=== PATIENT | male | born 1945 | race Hispanic/Latino ===

== ENCOUNTER 2019-05-07 17:33 | Emergency (ER) | payer MEDICARE ==
--- NOTE | 2019-05-07 17:46 | Emergency Department Report ---
Blank Doc - Documentation Documentation: 73-year-old male that presents with alcohol detox. Last drink was today. Sta haylee has depression and SI. This initial assessment/diagnostic orders/clinical plan/treatment(s) is/are subject to change based on patient's health status, clinical progression and re- assessment by fellow clinical providers in the ED. Further treatment and workup at subsequent clinical providers discretion. Patient/guardians urged not to elope from the ED as their condition may be serious if not clinically assessed and managed. Initial orders include: 1- Patient sent to MAIN ED for further evaluation and treatment 2- wire roller was notified to have patient be brought back IVETH. 3- RN was notified to keep patient as close range and observation until room available 4- Patient presents with substantial risk of imminent harm to self, appears to be so unable to care for his/her own physical health and safety as to create an imminently life-endangering crisis, and has committed/expressed life endangering crisis to self. Due to this and other complaints, patient is put on psych hold.
[2019-05-07 18:22] LABS: Basophils # (Auto) 0.1 K/mm3 (0.0-0.1); Eosinophils % (Auto) 0.1 % (0.0-4.3); Hematocrit 36.2 % (35.5-45.6); Hemoglobin 12.4 gm/dl (11.8-15.2); Lymphocytes # (Auto) 1.2 K/mm3 (1.2-5.4); Lymphocytes % (Auto) 17.3 % (13.4-35.0); Mean Corpuscular HGB Conc 34 % (32-34); Mean Corpuscular Volume 101 fl (84-94); Monocytes # (Auto) 0.6 K/mm3 (0.0-0.8); Monocytes % (Auto) 8.9 % (0.0-7.3); Platelet Count 304 K/mm3 (140-440); Red Blood Count 3.57 M/mm3 (3.65-5.03); Red Cell Distribution Width 13.5 % (13.2-15.2)
[2019-05-07 18:44] LABS: Alanine Aminotransferase 65 units/L (7-56); Albumin 4.4 g/dL (3.9-5); BUN/Creatinine Ratio 23; Blood Urea Nitrogen 18 mg/dL (9-20); Calcium 9.2 mg/dL (8.4-10.2); Hemolysis Index 7
[2019-05-07 18:52] LABS: Bilirubin,Urine NEG (Negative); Blood,Urine NEG (Negative); Color,Urine Straw (Yellow); Hyaline Casts,Urine 1 /LPF; Protein,Urine <15 mg/dL mg/dL (Negative); Urobilinogen,Urine < 2.0 mg/dL (<2.0)
[2019-05-07 19:01] LABS: Amphetamine Screen,Urine PRESUMPTIVE NEGATIVE; Benzodiazepines Screen,Urine PRESUMPTIVE NEGATIVE; Cannabinoid Screen,Urine PRESUMPTIVE NEGATIVE; Cocaine Screen,Urine PRESUMPTIVE NEGATIVE; Methadone Screen,Urine PRESUMPTIVE NEGATIVE; Opiate Screen,Urine PRESUMPTIVE NEGATIVE
[2019-05-07] MEDS ORDERED: traMADol 50 MG TAB PO ONE (19:34)
[2019-05-07] MEDS ORDERED: LORazepam 2 MG TAB PO PRN (19:34)
[2019-05-07] MEDS ORDERED: SODIUM CHLORIDE 0.9% 1000 ML 1,000 ML IV ONE (20:10)
[2019-05-07] MEDS ORDERED: THIAMINE 100 MG, FOLIC ACID 1 MG, MULTIPLE VITAMIN INJ, ADULT 10 ML in SODIUM CHLORIDE ... IV ONE (20:11)
[2019-05-07] MEDS: LORazepam 2 MG TAB PO PRN (20:12)
--- NOTE | 2019-05-07 23:16 | Emergency Department Report ---
<ELIE GARRISON S - Last Filed: 05/08/19 10:42> ED Psych HPI - General Chief Complaint: Alcohol Stated Complaint: DETOX Time Seen by Provider: 05/07/19 17:44 - Related Data Home Medications Medication Instructions Recorded Confirmed Last Taken Amlodipine Besylate [Norvasc] 10 mg PO QDAY 04/30/13 05/08/19 06/13/13 07:30 Clopidogrel [Plavix] 75 mg PO QDAY 04/30/13 05/08/19 06/09/13 Zolpidem Tartrate 10 mg PO QHS 04/30/13 05/08/19 06/12/13 labetaloL [Labetalol 200mg TAB] 300 mg PO BID 04/30/13 05/08/19 06/13/13 07:30 Previous Rx's Medication Instructions Recorded Last Taken Type oxyCODONE /ACETAMINOPHEN [Percocet 1 tab PO Q6HR PRN #25 tablet 05/01/13 06/12/13 Rx 5/325 mg] Simvastatin 20 mg PO QHS #30 tablet 07/07/13 Unknown Rx Allergies Allergy/AdvReac Type Severity Reaction Status Date / Time No Known Allergies Allergy Verified 05/01/13 00:43 ED Past Medical Hx - Medications Home Medications: Home Medications Medication Instructions Recorded Confirmed Last Taken Type Amlodipine Besylate [Norvasc] 10 mg PO QDAY 04/30/13 05/08/19 06/13/13 07:30 History Clopidogrel [Plavix] 75 mg PO QDAY 04/30/13 05/08/19 06/09/13 History Zolpidem Tartrate 10 mg PO QHS 04/30/13 05/08/19 06/12/13 History labetaloL [Labetalol 200mg TAB] 300 mg PO BID 04/30/13 05/08/19 06/13/13 07:30 History oxyCODONE /ACETAMINOPHEN [Percocet 1 tab PO Q6HR PRN #25 tablet 05/01/13 05/08/19 06/12/13 Rx 5/325 mg] Simvastatin 20 mg PO QHS #30 tablet 07/07/13 05/08/19 Unknown Rx ED Medical Decision Making - Lab Data Result diagrams: 05/07/19 18:05 05/07/19 18:05 ED Disposition Clinical Impression: Suicidal ideation, Alcohol abuse, Elevated LFTs Disposition: DC-01 TO HOME OR SELFCARE Is pt being admited?: No Condition: Stable Instructions: Depression (ED), Abuse of Alcohol (ED), Suicide Prevention for Adults (ED) Additional Instructions: Please follow up with your primary care physician as soon as you are done with inpatient psych. Please follow-up with your primary care physician regarding your elevated liver enzymes and for your general care. Return to the emergency department with any worsening of your symptoms, thoughts of harming herself or others, or with any acute distress. Please avoid further alcohol use/abuse. Referrals: PRIMARY CARE, [Primary Care Provider] - 2-3 Days Time of Disposition: 10:43 <BRI VAUGHN - Last Filed: 05/09/19 00:37> ED Psych HPI - General Source: patient, family Mode of arrival: Ambulatory - History of Present Illness Initial Comments: 73-year-old male with history of depression and alcohol abuse presents to ED with report of suicidal ideation. Patient states this has happened multiple times in the past and reports patient has had several admissions to [facility]. Patient is requesting alcohol detox. Patient states that he is suicidal, but currently has no plan. He also reports chronic pain in his left leg. Complaint: suicidal ideation, feels depressed -: unknown Associated Psychiatric Symptoms: suicidal ideation History of same: Yes Quality: constant Context: recent alcohol abuse Associated Symptoms: denies other symptoms Treatments Prior to Arrival: none If Self Harm: admits thoughts of ED Review of Systems ROS: Stated complaint: DETOX Other details as noted in HPI Comment: All other systems reviewed and negative Psychiatric: depression, suicidal thoughts. denies: auditory hallucinations, visual hallucinations, homicidal thoughts ED Past Medical Hx - Past Medical History Previous Medical History?: Yes Hx Hypertension: Yes (2009) Hx Psychiatric Treatment: Yes (ETOH abuse) Hx COPD: Yes Additional medical history: insomnia, ETOH abuse - Surgical History Past Surgical History?: Yes Additional Surgical History: Back Surgery - Social History Smoking Status: Current Every Day Smoker Substance Use Type: Alcohol, Prescribed ED Physical Exam - General Limitations: Other General appearance: alert, in no apparent distress, appears intoxicated - Head Head exam: Present: atraumatic, normocephalic - Eye Eye exam: Present: normal appearance - ENT ENT exam: Present: mucous membranes moist - Neck Neck exam: Present: normal inspection - Respiratory Respiratory exam: Present: normal lung sounds bilaterally. Absent: respiratory distress - Cardiovascular Cardiovascular Exam: Present: normal rhythm, tachycardia - GI/Abdominal GI/Abdominal exam: Present: soft. Absent: distended, tenderness - Extremities Exam Extremities exam: Present: other (chronic-appearing deformity to left lower leg and foot; no swelling/ erythema; leg is nontender to palpation; DP pulse palpable, cap refill nml) - Neurological Exam Neurological exam: Present: alert, oriented X3 - Psychiatric Psychiatric exam: Present: depressed, suicidal ideation - Skin Skin exam: Present: warm, dry, intact, normal color ED Course Vital Signs 05/07/19 05/07/19 05/07/19 17:35 19:57 19:58 Temperature 98 F 97.8 F Pulse Rate 113 H 104 H Respiratory 22 20 20 Rate Blood Pressure 172/75 Blood Pressure 178/86 [Left] O2 Sat by Pulse 97 97 97 Oximetry 05/07/19 05/07/19 05/08/19 20:11 21:11 00:00 Temperature Pulse Rate 90 Respiratory 20 20 20 Rate Blood Pressure Blood Pressure 152/77 [Left] O2 Sat by Pulse 99 Oximetry 05/08/19 07:44 Temperature Pulse Rate 82 Respiratory 20 Rate Blood Pressure Blood Pressure 106/72 [Left] O2 Sat by Pulse 99 Oximetry ED Medical Decision Making - Lab Data Result diagrams: 05/07/19 18:05 05/07/19 18:05 - Medical Decision Making 73 yo M presents w/ SI and requests alcohol detox. Labs show mild acidosis and mild liver enzyme elevation, likely due to his alcohol abuse. Pt given banana bag and placed on CIWA protocol. Will dispo per psych. - Differential Diagnosis depression, alcohol abuse Critical care attestation.: If time is entered above; I have spent that time in minutes in the direct care of this critically ill patient, excluding procedure time.
[2019-05-08] MEDS: LORazepam 2 MG TAB PO PRN (03:04)
[2019-05-08 07:45] VITALS: BP 106/72
== END 2019-05-08 10:58 | disposition home or self-care (01) ==
LOC: EEVIPCON 17:33 → ED 17:33
DX: F32.9 Major depressive disorder, single episode, unspecified (principal); I10 Essential (primary) hypertension; J44.9 Chronic obstructive pulmonary disease, unspecified; F17.200 Nicotine dependence, unspecified, uncomplicated; F10.10 Alcohol abuse, uncomplicated; Z98.890 Other specified postprocedural states
CPT/HCPCS: 36415; 80053; 80307; 81001; 85025; 96365; 96366; 99284; J3411; J7030; 80320; G0480

== ENCOUNTER 2019-05-08 09:57 | Inpatient (IN) | payer MEDICARE ==
[2019-05-08] MEDS ORDERED: traZODone 50 MG TAB PO PRN (10:31)
[2019-05-08] MEDS ORDERED: chlordiazePOXIDE 25 MG CAP PO PRN (10:32)
[2019-05-08] MEDS ORDERED: THIAMINE 100 MG TAB PO SCH (12:00)
[2019-05-08 15:46] LABS: Basophils # (Auto) 0.1 K/mm3 (0.0-0.1); Basophils % (Auto) 0.8 % (0.0-1.8); Eosinophils % (Auto) 0.5 % (0.0-4.3); Hematocrit 41.1 % (35.5-45.6); Hemoglobin 14.1 gm/dl (11.8-15.2); Lymphocytes # (Auto) 1.1 K/mm3 (1.2-5.4); Lymphocytes % (Auto) 16.3 % (13.4-35.0); Mean Corpuscular HGB Conc 34 % (32-34); Mean Corpuscular Volume 102 fl (84-94); Monocytes # (Auto) 0.5 K/mm3 (0.0-0.8); Monocytes % (Auto) 8.3 % (0.0-7.3); Platelet Count 317 K/mm3 (140-440); Red Blood Count 4.03 M/mm3 (3.65-5.03); Red Cell Distribution Width 13.8 % (13.2-15.2)
[2019-05-08 16:17] LABS: Alanine Aminotransferase 59 units/L (7-56); Albumin 4.7 g/dL (3.9-5); BUN/Creatinine Ratio 20; Blood Urea Nitrogen 14 mg/dL (9-20); Calcium 9.6 mg/dL (8.4-10.2); Hemolysis Index 5
[2019-05-08] MEDS: THIAMINE 100 MG TAB PO SCH (19:24)
[2019-05-08] MEDS: chlordiazePOXIDE 25 MG CAP PO PRN ×2 (21:31→23:11)
[2019-05-08] MEDS: PRAVASTATIN 40 MG TAB PO SCH (21:31)
[2019-05-08] MEDS: MELATONIN 5 MG TAB PO SCH (21:32)
[2019-05-08] MEDS ORDERED: NON-FORMULARY EACH (Simvastatin [Simvastatin] 20 MG) PO SCH (22:00)
[2019-05-08] MEDS ORDERED: traZODone 50 MG TAB PO SCH (22:00)
[2019-05-08] MEDS: DIVALPROEX DR 250 MG TAB PO SCH ×3 (23:10→23:57)
[2019-05-09] MEDS: oxyCODONE /ACETAMINOPHEN 5-325MG TAB PO PRN ×2 (03:43→21:13)
[2019-05-09] MEDS: DIVALPROEX DR 250 MG TAB PO SCH ×3 (09:50→21:13)
[2019-05-09] MEDS: amLODIPine 10 MG TAB PO SCH (09:51)
[2019-05-09] MEDS: THIAMINE 100 MG TAB PO SCH (09:56)
[2019-05-09] MEDS: CLOPIDOGREL 75 MG TAB PO SCH (09:56)
[2019-05-09] MEDS ORDERED: NON-FORMULARY EACH (Amlodipine Besylate [Norvasc] 10 MG) PO SCH (10:00)
--- NOTE | 2019-05-09 10:35 | Consultation ---
History of Present Illness - Reason for Consult Consult date: 05/09/19 medical Mx - History of Present Illness Mr. Martinez is a 73 years old white male with h/o HTN seizure appears older than his age presented her for depression. He also has h/o alcohol drinking daily basis. Hospitalist service consulted for medical Mx. patient is eating lunch, denies any chest pain or SBO. PAST PSYCHIATRIC HISTORY: major depression, PAST MEDICAL HISTORY: seizure, htn PAST SURGICAL HISTORY: None Family Psychiatric History HTN, mother with dementia SOCIAL HISTORY Marital Status: Living Arrangements: Mother Employment Status: Unemployed History of Abuse: + for alcohol Past History Past Medical History: hypertension, seizures Medications and Allergies Allergies Allergy/AdvReac Type Severity Reaction Status Date / Time No Known Allergies Allergy Verified 05/01/13 00:43 Home Medications Medication Instructions Recorded Confirmed Last Taken Type Amlodipine Besylate [Norvasc] 10 mg PO QDAY 04/30/13 05/08/19 06/13/13 07:30 History Clopidogrel [Plavix] 75 mg PO QDAY 04/30/13 05/08/19 06/09/13 History Zolpidem Tartrate 10 mg PO QHS 04/30/13 05/08/19 06/12/13 History labetaloL [Labetalol 200mg TAB] 300 mg PO BID 04/30/13 05/08/19 06/13/13 07:30 History oxyCODONE /ACETAMINOPHEN [Percocet 1 tab PO Q6HR PRN #25 tablet 05/01/13 05/08/19 06/12/13 Rx 5/325 mg] Simvastatin 20 mg PO QHS #30 tablet 07/07/13 05/08/19 Unknown Rx Active Meds: Active Medications Amlodipine Besylate (Amlodipine) 10 mg PO DAILY [facility] Last Admin: 05/09/19 09:51 Dose: 10 mg Documented by: Clopidogrel Bisulfate (Plavix) 75 mg PO QDAY [facility] Last Admin: 05/09/19 09:56 Dose: 75 mg Documented by: Divalproex Sodium (Depakote Dr) 250 mg PO TID [facility] Last Admin: 05/09/19 09:50 Dose: 250 mg Documented by: Hydroxyzine Pamoate (Vistaril) 50 mg PO Q6H PRN PRN Reason: Anxiety Labetalol HCl (Labetalol) 300 mg PO BID [facility] Last Admin: 05/09/19 09:51 Dose: 300 mg Documented by: Melatonin (Melatonin) 5 mg PO QHS [facility] Last Admin: 05/08/19 21:32 Dose: 5 mg Documented by: Oxycodone/Acetaminophen (Percocet 5/325) 1 tab PO Q6HR PRN PRN Reason: PAIN Last Admin: 05/09/19 03:43 Dose: 1 tab Documented by: Pravastatin Sodium (Pravachol) 40 mg PO QHS [facility] Last Admin: 05/08/19 21:31 Dose: 40 mg Documented by: Thiamine HCl (Vitamin B-1) 100 mg PO QDAY [facility] Last Admin: 05/09/19 09:56 Dose: 100 mg Documented by: Trazodone HCl (Desyrel) 50 mg PO QHS [facility] Last Admin: 05/08/19 21:59 Dose: 50 mg Documented by: Review of Systems Constitutional: weight loss, fatigue, weakness, no anorexia Ears, nose, mouth and throat: no ear pain, no decreased hearing, no nasal congestion, no bleeding gums, no voice changes, no headache Cardiovascular: no chest pain, no orthopnea, no palpitations Respiratory: no cough, no dyspnea on exertion, no wheezing Gastrointestinal: no abdominal pain, no nausea, no vomiting Genitourinary Male: no dysuria Rectal: no hemorrhoids Musculoskeletal: no neck stiffness, no muscle cramps Integumentary: no rash, no redness Neurological: no paralysis, no weakness, no parathesias Psychiatric: depression Endocrine: weight change, no cold intolerance, no heat intolerance Hematologic/Lymphatic: no easy bruising, no easy bleeding Allergic/Immunologic: no wheezing Exam - Constitutional Vitals: Temp Pulse Resp BP Pulse Ox 97.5 F L 83 16 156/87 98 05/08/19 19:54 05/09/19 09:51 05/09/19 03:43 05/09/19 09:51 05/08/19 19:54 General appearance: Present: no acute distress, other (appears older than his age) - EENT Eyes: Present: PERRL ENT: hearing intact, clear oral mucosa - Neck Neck: Present: supple, normal ROM - Respiratory Respiratory effort: normal Respiratory: bilateral: CTA - Cardiovascular Heart Sounds: Present: S1 & S2. Absent: rub, click - Extremities Extremities: pulses symmetrical, No edema Peripheral Pulses: within normal limits - Abdominal General gastrointestinal: Present: soft, non-tender, non-distended, normal bowel sounds - Integumentary Integumentary: Present: clear, warm, dry - Musculoskeletal Musculoskeletal: gait normal, strength equal bilaterally - Psychiatric Psychiatric: appropriate mood/affect, intact judgment & insight - Neurologic Neurologic: CNII-XII intact, moves all extremities Results - Labs CBC & Chem 7: 05/08/19 15:11 05/08/19 15:11 Labs: Abnormal lab results 05/08/19 05/08/19 Range/Units 15:11 15:11 MCV 102 H (84-94) fl MCH 35 H (28-32) pg Mcculloch % (Auto) 8.3 H (0.0-7.3) % Lymph # 1.1 L (1.2-5.4) K/mm3 Seg Neutrophils % 74.1 H (40.0-70.0) % Sodium 135 L (137-145) mmol/L Chloride 92.8 L (98-107) mmol/L Creatinine 0.7 L (0.8-1.5) mg/dL AST 102 H (5-40) units/L ALT 59 H (7-56) units/L Assessment and Plan MDD - Mx per primary - patient refuse SI or SA HTN, stable, cont home meds Seizure disorder, cont home meds Alcohol abuse, monitor for withdrawal, cont folate and thiamin - rehab/pre vocational counselor for cessation DVT Px, SCD when on bed, pt ambulatory
--- NOTE | 2019-05-09 11:05 | History and Physical Report ---
<RACHAEL BACK - Last Filed: 05/09/19 11:46> GP History & Physical - History of Present Illness Date of admission: 05/08/19 Date of Examination: 05/09/19 Reason for Admission: Danger to self, Severe anxiety/depression History of Present Illness: Mr. Martinez is a 73 years old white male. Patient is alert and oriented 3. The patient is dressed appropriately. The patient appears older than his age patient maintained eye contact patient stated that he is here in the hospital because he's been falling a lot and he gets depressed all the time because he cannot do anything about falling he states he was brought here because of suicidal thoughts he currently doesn't have any plans patient reports that he has not been sleeping and he has lost a lot of weight he denies hearing anything but he does report seeing spots he reports that he drinks daily, beer he is his choice of drink and his last drink was a day before coming to the hospital he reports that he has had seizures from drinking currently reports shakes depression and irritability. PAST PSYCHIATRIC HISTORY: Diagnoses: major depression, suicide ideation on Suicide attempts or Self-harm behavior: Denies Prior psychiatric hospitalizations: Denies Substance Abuse history: Denies Previous psychiatric medications tried: Denies Outpatient treatment: Denies PAST MEDICAL HISTORY: seizure, htn Family Psychiatric History None reported or documented SOCIAL HISTORY Marital Status: Living Arrangements: Mother Employment Status: Unemployed Access to guns/weapons: Denies Education: Ninth grade History of Abuse: Denies Legal History: Denies ROS: Constitutional: Negative for weight loss ENT: Negative for stridor Respiratory: Negative for cough or hemoptysis All other systems reviewed and are negative MENTAL STATUS General Appearance and Behavior: age appropriate, good eye contact, cooperative with questioning and polite Cooperation: Cooperative Psychomotor Behavior: within normal limits Mood: sad Affect and affective range: Congruent with stated mood Thought Process: Fluent/Logical and Goal-directed Thought Content: Within reality Speech: Normal volume and Regular rate and rhythm Intellectual Functioning Average Suicidal Ideation: Denies SI Homicidal Ideation: Denies HI Impulse Control: intact Insight and Judgment: normal insight and judgment Memory: Normal Attention: Normal Orientation: alert and oriented Treatment Plan Due to the psychiatric conditions and treatment listed in the Assessment and Plan - the patient requires continued hospitalization. Will continue inpatient treatment to allow for medication adjustment and monitoring. Will continue q15 min safety checks. Will encourage the use of environmental modifications and non-pharmacologic approaches for the management of behavioral and psychological symptoms. Medication adjustment made today: start paxil 10mg daily, increase trazadone to 100md qhs Will continue current psych medications Monitor for medication side effects. The patient will continue on medications for physical illnesses, and Hospitalist will closely monitor these Continue intensive physical and occupational therapies. Monitor patient's mood, sleep, appetite, and behavior closely. Encourage patient to participate in individual and group therapeutic sessions on the thomas. Will provide a safe and therapeutic environment for patient. This is an acknowledgement statement that ANTONIETTA MARTINEZ JR is a 73 year old M who requires inpatient psychiatric admission for treatment which could reasonably be expected to improve the patient's condition for Estimated period of time patient will need to remain in the hospital: [7 ] Plan for post-hospital care: [out-patient ] Legal Status: Voluntary Patient Problems: Current Active Problems Alcohol use disorder, severe, dependence (Acute) MDD (major depressive disorder), recurrent episode, severe (Acute) Reaction to Hospitalization: Accepting Medications and Allergies Allergies Allergy/AdvReac Type Severity Reaction Status Date / Time No Known Allergies Allergy Verified 05/01/13 00:43 Home Medications Medication Instructions Recorded Confirmed Last Taken Type Amlodipine Besylate [Norvasc] 10 mg PO QDAY 04/30/13 05/08/19 06/13/13 07:30 History Clopidogrel [Plavix] 75 mg PO QDAY 04/30/13 05/08/19 06/09/13 History Zolpidem Tartrate 10 mg PO QHS 04/30/13 05/08/19 06/12/13 History labetaloL [Labetalol 200mg TAB] 300 mg PO BID 04/30/13 05/08/19 06/13/13 07:30 History oxyCODONE /ACETAMINOPHEN [Percocet 1 tab PO Q6HR PRN #25 tablet 05/01/13 05/08/19 06/12/13 Rx 5/325 mg] Simvastatin 20 mg PO QHS #30 tablet 07/07/13 05/08/19 Unknown Rx Active Meds: Active Medications Amlodipine Besylate (Amlodipine) 10 mg PO DAILY [facility] Last Admin: 05/09/19 09:51 Dose: 10 mg Documented by: Clopidogrel Bisulfate (Plavix) 75 mg PO QDAY [facility] Last Admin: 05/09/19 09:56 Dose: 75 mg Documented by: Divalproex Sodium (Depakote Dr) 250 mg PO TID [facility] Last Admin: 05/09/19 09:50 Dose: 250 mg Documented by: Hydroxyzine Pamoate (Vistaril) 50 mg PO Q6H PRN PRN Reason: Anxiety Labetalol HCl (Labetalol) 300 mg PO BID [facility] Last Admin: 05/09/19 09:51 Dose: 300 mg Documented by: Melatonin (Melatonin) 5 mg PO QHS [facility] Last Admin: 05/08/19 21:32 Dose: 5 mg Documented by: Oxycodone/Acetaminophen (Percocet 5/325) 1 tab PO Q6HR PRN PRN Reason: PAIN Last Admin: 05/09/19 03:43 Dose: 1 tab Documented by: Pravastatin Sodium (Pravachol) 40 mg PO QHS [facility] Last Admin: 05/08/19 21:31 Dose: 40 mg Documented by: Thiamine HCl (Vitamin B-1) 100 mg PO QDAY [facility] Last Admin: 05/09/19 09:56 Dose: 100 mg Documented by: Trazodone HCl (Desyrel) 50 mg PO QHS [facility] Last Admin: 05/08/19 21:59 Dose: 50 mg Documented by: Results - Results Labs/Vitals: Laboratory Last Values WBC 6.5 K/mm3 (4.5-11.0) 05/08/19 15:11 RBC 4.03 M/mm3 (3.65-5.03) 05/08/19 15:11 Hgb 14.1 gm/dl (11.8-15.2) 05/08/19 15:11 Hct 41.1 % (35.5-45.6) 05/08/19 15:11 MCV 102 fl (84-94) H 05/08/19 15:11 MCH 35 pg (28-32) H 05/08/19 15:11 MCHC 34 % (32-34) 05/08/19 15:11 RDW 13.8 % (13.2-15.2) 05/08/19 15:11 Plt Count 317 K/mm3 (140-440) 05/08/19 15:11 Lymph % (Auto) 16.3 % (13.4-35.0) 05/08/19 15:11 [place] % (Auto) 8.3 % (0.0-7.3) H 05/08/19 15:11 Eos % (Auto) 0.5 % (0.0-4.3) 05/08/19 15:11 Baso % (Auto) 0.8 % (0.0-1.8) 05/08/19 15:11 Lymph # 1.1 K/mm3 (1.2-5.4) L 05/08/19 15:11 [place] # 0.5 K/mm3 (0.0-0.8) 05/08/19 15:11 Eos # 0.0 K/mm3 (0.0-0.4) 05/08/19 15:11 Baso # 0.1 K/mm3 (0.0-0.1) 05/08/19 15:11 Seg Neutrophils % 74.1 % (40.0-70.0) H 05/08/19 15:11 Seg Neutrophils # 4.8 K/mm3 (1.8-7.7) 05/08/19 15:11 Sodium 135 mmol/L (137-145) L 05/08/19 15:11 Potassium 4.5 mmol/L (3.6-5.0) 05/08/19 15:11 Chloride 92.8 mmol/L (98-107) L 05/08/19 15:11 Carbon Dioxide 25 mmol/L (22-30) D 05/08/19 15:11 Anion Gap 22 mmol/L 05/08/19 15:11 BUN 14 mg/dL (9-20) 05/08/19 15:11 Creatinine 0.7 mg/dL (0.8-1.5) L 05/08/19 15:11 Estimated GFR > 60 ml/min 05/08/19 15:11 BUN/Creatinine Ratio 20 % 05/08/19 15:11 Glucose 89 mg/dL (75-100) 05/08/19 15:11 Hemoglobin A1c 5.2 % (4-6) 05/08/19 15:11 Calcium 9.6 mg/dL (8.4-10.2) 05/08/19 15:11 Total Bilirubin 0.80 mg/dL (0.1-1.2) 05/08/19 15:11 AST 102 units/L (5-40) H 05/08/19 15:11 ALT 59 units/L (7-56) H 05/08/19 15:11 Alkaline Phosphatase 78 units/L (35-129) 05/08/19 15:11 Total Protein 8.2 g/dL (6.3-8.2) 05/08/19 15:11 Albumin 4.7 g/dL (3.9-5) 05/08/19 15:11 Albumin/Globulin Ratio 1.3 % 05/08/19 15:11 TSH 2.520 mlU/mL (0.270-4.200) 05/08/19 15:11 Last Vital Signs Temp 98.2 F 05/09/19 07:51 Pulse 83 05/09/19 09:51 Resp 18 05/09/19 07:51 BP 156/87 05/09/19 09:51 Pulse Ox 98 05/08/19 19:54 Physical Examination - Constitutional Vitals: Vital Signs Temp Pulse Resp BP Pulse Ox 98.2 F 83 18 156/87 98 05/09/19 07:51 05/09/19 09:51 05/09/19 07:51 05/09/19 09:51 05/08/19 19:54 Temperature -Last 24 Hours Temperature 98.2 F Temperature 97.5 F Mental Status Exam - Vital signs Last Vital Signs Temp 98.2 F 05/09/19 07:51 Pulse 83 05/09/19 09:51 Resp 18 05/09/19 07:51 BP 156/87 05/09/19 09:51 Pulse Ox 98 05/08/19 19:54 Physician Certification - Certification Statement Physician Certification Statement: This is an acknowledgement statement that ANTONIETTA MARTINEZ is a 73 year old M who requires inpatient psychiatric admission for treatment which could reasonably be expected to improve the patient's condition for Estimated period of time patient will need to remain in the hospital: [7 ] Plan for post-hospital care: [out-patient ] <NATHEN HEART - Last Filed: 05/11/19 22:25> Medications and Allergies Active Meds: Active Medications Amlodipine Besylate (Amlodipine) 10 mg PO DAILY [facility] Last Admin: 05/11/19 09:38 Dose: 10 mg Documented by: Chlordiazepoxide HCl (Librium) 50 mg PO Q1H PRN PRN Reason: CIWA-Ar 8-15 Last Admin: 05/09/19 11:51 Dose: 50 mg Documented by: Chlordiazepoxide HCl (Librium) 100 mg PO Q1H PRN PRN Reason: CIWA-Ar 16-25 Clopidogrel Bisulfate (Plavix) 75 mg PO QDAY [facility] Last Admin: 05/11/19 09:37 Dose: 75 mg Documented by: Divalproex Sodium (Depakote Dr) 250 mg PO TID [facility] Last Admin: 05/11/19 20:33 Dose: 250 mg Documented by: Hydroxyzine Pamoate (Vistaril) 50 mg PO Q6H PRN PRN Reason: Anxiety Labetalol HCl (Labetalol) 300 mg PO BID [facility] Last Admin: 05/11/19 21:22 Dose: 300 mg Documented by: Melatonin (Melatonin) 5 mg PO QHS [facility] Last Admin: 05/11/19 21:20 Dose: 5 mg Documented by: Nicotine (Habitrol) 21 mg TD QDAY [facility] Last Admin: 05/11/19 09:39 Dose: 21 mg Documented by: Oxycodone/Acetaminophen (Percocet 5/325) 1 tab PO Q6HR PRN PRN Reason: PAIN Last Admin: 05/11/19 11:30 Dose: 1 tab Documented by: Paroxetine HCl (Paxil) 10 mg PO QDAY [facility] Last Admin: 05/11/19 09:38 Dose: 10 mg Documented by: Pravastatin Sodium (Pravachol) 40 mg PO QHS [facility] Last Admin: 05/11/19 21:20 Dose: 40 mg Documented by: Thiamine HCl (Vitamin B-1) 100 mg PO QDAY [facility] Last Admin: 05/11/19 09:37 Dose: 100 mg Documented by: Trazodone HCl (Desyrel) 100 mg PO QHS [facility] Last Admin: 05/11/19 21:19 Dose: 100 mg Documented by: Results - Results Labs/Vitals: Laboratory Last Values WBC 6.5 K/mm3 (4.5-11.0) 05/08/19 15:11 RBC 4.03 M/mm3 (3.65-5.03) 05/08/19 15:11 Hgb 14.1 gm/dl (11.8-15.2) 05/08/19 15:11 Hct 41.1 % (35.5-45.6) 05/08/19 15:11 MCV 102 fl (84-94) H 05/08/19 15:11 MCH 35 pg (28-32) H 05/08/19 15:11 MCHC 34 % (32-34) 05/08/19 15:11 RDW 13.8 % (13.2-15.2) 05/08/19 15:11 Plt Count 317 K/mm3 (140-440) 05/08/19 15:11 Lymph % (Auto) 16.3 % (13.4-35.0) 05/08/19 15:11 Edgar % (Auto) 8.3 % (0.0-7.3) H 05/08/19 15:11 Eos % (Auto) 0.5 % (0.0-4.3) 05/08/19 15:11 Baso % (Auto) 0.8 % (0.0-1.8) 05/08/19 15:11 Lymph # 1.1 K/mm3 (1.2-5.4) L 05/08/19 15:11 Edgar # 0.5 K/mm3 (0.0-0.8) 05/08/19 15:11 Eos # 0.0 K/mm3 (0.0-0.4) 05/08/19 15:11 Baso # 0.1 K/mm3 (0.0-0.1) 05/08/19 15:11 Seg Neutrophils % 74.1 % (40.0-70.0) H 05/08/19 15:11 Seg Neutrophils # 4.8 K/mm3 (1.8-7.7) 05/08/19 15:11 Sodium 135 mmol/L (137-145) L 05/08/19 15:11 Potassium 4.5 mmol/L (3.6-5.0) 05/08/19 15:11 Chloride 92.8 mmol/L (98-107) L 05/08/19 15:11 Carbon Dioxide 25 mmol/L (22-30) D 05/08/19 15:11 Anion Gap 22 mmol/L 05/08/19 15:11 BUN 14 mg/dL (9-20) 05/08/19 15:11 Creatinine 0.7 mg/dL (0.8-1.5) L 05/08/19 15:11 Estimated GFR > 60 ml/min 05/08/19 15:11 BUN/Creatinine Ratio 20 % 05/08/19 15:11 Glucose 89 mg/dL (75-100) 05/08/19 15:11 POC Glucose 110 (70-105) H 05/11/19 16:36 Hemoglobin A1c 5.2 % (4-6) 05/08/19 15:11 Calcium 9.6 mg/dL (8.4-10.2) 05/08/19 15:11 Total Bilirubin 0.80 mg/dL (0.1-1.2) 05/08/19 15:11 AST 102 units/L (5-40) H 05/08/19 15:11 ALT 59 units/L (7-56) H 05/08/19 15:11 Alkaline Phosphatase 78 units/L (35-129) 05/08/19 15:11 Total Protein 8.2 g/dL (6.3-8.2) 05/08/19 15:11 Albumin 4.7 g/dL (3.9-5) 05/08/19 15:11 Albumin/Globulin Ratio 1.3 % 05/08/19 15:11 TSH 2.520 mlU/mL (0.270-4.200) 05/08/19 15:11 Last Vital Signs Temp 98.3 F 05/11/19 19:38 Pulse 80 05/11/19 21:22 Resp 20 05/11/19 19:38 BP 112/57 05/11/19 21:22 Pulse Ox 97 05/11/19 19:38 Physical Examination - Constitutional Vitals: Vital Signs Temp Pulse Resp BP Pulse Ox 98.3 F 80 20 112/57 97 05/11/19 19:38 05/11/19 21:22 05/11/19 19:38 05/11/19 21:22 05/11/19 19:38 Temperature -Last 24 Hours Temperature 98.3 F Temperature 97.9 F Mental Status Exam - Vital signs Last Vital Signs Temp 98.3 F 05/11/19 19:38 Pulse 80 05/11/19 21:22 Resp 20 05/11/19 19:38 BP 112/57 05/11/19 21:22 Pulse Ox 97 05/11/19 19:38 Assessment and Plan - Psychiatric problem (1) MDD (major depressive disorder), recurrent episode, severe Current Visit: Yes Status: Acute (2) Alcohol use disorder, severe, dependence Current Visit: Yes Status: Acute Physician Certification - Certification Statement Physician Certification Statement: This is an acknowledgement statement that ANTONIETTA VANGIE MARTINEZ JR is a 73 year old M who requires inpatient psychiatric admission for treatment which could reasonably be expected to improve the patient's condition for Estimated period of time patient will need to remain in the hospital: [ ] Plan for post-hospital care: [ ]
[2019-05-09] MEDS ORDERED: chlordiazePOXIDE 25 MG CAP PO PRN ×2 (11:20)
[2019-05-09] MEDS: traZODone 50 MG TAB PO SCH ×2 (12:23→21:09)
[2019-05-09] MEDS: MELATONIN 5 MG TAB PO SCH (21:12)
[2019-05-09] MEDS: PRAVASTATIN 40 MG TAB PO SCH (21:14)
[2019-05-10] MEDS: PARoxetine 10 MG TAB PO SCH (09:39)
[2019-05-10] MEDS: DIVALPROEX DR 250 MG TAB PO SCH ×3 (09:40→19:47)
[2019-05-10] MEDS: amLODIPine 10 MG TAB PO SCH (09:40)
[2019-05-10] MEDS: CLOPIDOGREL 75 MG TAB PO SCH (09:40)
[2019-05-10] MEDS: THIAMINE 100 MG TAB PO SCH (09:41)
[2019-05-10] MEDS: NICOTINE 21 MG/24 HR PATCH TD SCH (09:41)
--- NOTE | 2019-05-10 11:38 | Progress Note ---
Subjective Date of service: 05/10/19 Principal diagnosis: Major depressive disorder, recurrent svere. Alcohol use disorder, severe Subjective Comment: I interviewed the patient this morning. Medical records reviewed and patient's progress was discussed with unit staff. per patient chart Patient was interactive during the evening shift. At bedtime he became more confused. He was in the hallway looking for the bathroom. This instructional writer took him back to his room and told him his bathroom was in his room. He was unsteady on his feet. Staff assisted him and got him safely into bed. Last evening he was medication compliant. Will continue to monitor patient for safety. In my interview with the patient this morning,the patient is alert and oriented 2, able to make his needs known, dressed appropriately, maintaining eye contact. Patient reports his sleep is fair and that he is slowly trying to eat better. The patient denies seeing or hearing things they report his mood as all right. He denies suicidal or homicidal ideations patient is noted with intermittent confusion. The patient does report that he feels shaky and irritable. We'll continue to monitor patient for withdrawals and irritability Reason for continuing inpatient treatment Review of Symptoms: Constitutional: Negative for weight loss ENT: Negative for stridor Respiratory: Negative for cough or hemoptysis All other systems reviewed and are negative MENTAL STATUS General Appearance and Behavior: age appropriate, good eye contact, cooperative with questioning and polite Cooperation: Cooperative Psychomotor Behavior: within normal limits Mood: OK Affect and affective range: Congruent with stated mood Thought Process: Fluent/Logical and Goal-directed Thought Content: Within reality Speech: Normal volume and Regular rate and rhythm Intellectual Functioning Average Suicidal Ideation: Denies SI Homicidal Ideation: Denies HI Impulse Control: intact Insight and Judgment: normal insight and judgment Memory: Normal Attention: Normal Orientation: alert and oriented Treatment Plan Due to the psychiatric conditions and treatment listed in the Assessment and Plan - the patient requires continued hospitalization. Will continue inpatient treatment to allow for medication adjustment and monitoring. Will continue q15 min safety checks. Will encourage the use of environmental modifications and non-pharmacologic approaches for the management of behavioral and psychological symptoms. Medication adjustment made today: none Will continue current psych medications Monitor for medication side effects. The patient will continue on medications for physical illnesses, and Hospitalist will closely monitor these Continue intensive physical and occupational therapies. Monitor patient's mood, sleep, appetite, and behavior closely. Encourage patient to participate in individual and group therapeutic sessions on the thomas. Will provide a safe and therapeutic environment for patient. Estimated length of stay --- days Medications and Allergies Allergies Allergy/AdvReac Type Severity Reaction Status Date / Time No Known Allergies Allergy Verified 05/01/13 00:43 Home Medications Medication Instructions Recorded Confirmed Last Taken Type Amlodipine Besylate [Norvasc] 10 mg PO QDAY 04/30/13 05/08/19 06/13/13 07:30 History Clopidogrel [Plavix] 75 mg PO QDAY 04/30/13 05/08/19 06/09/13 History Zolpidem Tartrate 10 mg PO QHS 04/30/13 05/08/19 06/12/13 History labetaloL [Labetalol 200mg TAB] 300 mg PO BID 04/30/13 05/08/19 06/13/13 07:30 History oxyCODONE /ACETAMINOPHEN [Percocet 1 tab PO Q6HR PRN #25 tablet 05/01/13 05/08/19 06/12/13 Rx 5/325 mg] Simvastatin 20 mg PO QHS #30 tablet 07/07/13 05/08/19 Unknown Rx Active Meds: Active Medications Amlodipine Besylate (Amlodipine) 10 mg PO DAILY [facility] Last Admin: 05/10/19 09:40 Dose: 10 mg Documented by: Chlordiazepoxide HCl (Librium) 50 mg PO Q1H PRN PRN Reason: CIWA-Ar 8-15 Last Admin: 05/09/19 11:51 Dose: 50 mg Documented by: Chlordiazepoxide HCl (Librium) 100 mg PO Q1H PRN PRN Reason: CHRISWA-Kenn 16-25 Clopidogrel Bisulfate (Plavix) 75 mg PO QDAY [facility] Last Admin: 05/10/19 09:40 Dose: 75 mg Documented by: Divalproex Sodium (Depakote Dr) 250 mg PO TID [facility] Last Admin: 05/10/19 09:40 Dose: 250 mg Documented by: Hydroxyzine Pamoate (Vistaril) 50 mg PO Q6H PRN PRN Reason: Anxiety Labetalol HCl (Labetalol) 300 mg PO BID [facility] Last Admin: 05/10/19 09:38 Dose: 300 mg Documented by: Melatonin (Melatonin) 5 mg PO QHS [facility] Last Admin: 05/09/19 21:12 Dose: 5 mg Documented by: Nicotine (Habitrol) 21 mg TD QDAY [facility] Last Admin: 05/10/19 09:41 Dose: 21 mg Documented by: Oxycodone/Acetaminophen (Percocet 5/325) 1 tab PO Q6HR PRN PRN Reason: PAIN Last Admin: 05/09/19 21:13 Dose: 1 tab Documented by: Paroxetine HCl (Paxil) 10 mg PO QDAY [facility] Last Admin: 05/10/19 09:39 Dose: 10 mg Documented by: Pravastatin Sodium (Pravachol) 40 mg PO QHS [facility] Last Admin: 05/09/19 21:14 Dose: 40 mg Documented by: Thiamine HCl (Vitamin B-1) 100 mg PO QDAY [facility] Last Admin: 05/10/19 09:41 Dose: 100 mg Documented by: Trazodone HCl (Desyrel) 100 mg PO QHS [facility] Last Admin: 05/09/19 21:09 Dose: 100 mg Documented by: Results - Results Labs/Vitals: Laboratory Last Values WBC 6.5 K/mm3 (4.5-11.0) 05/08/19 15:11 RBC 4.03 M/mm3 (3.65-5.03) 05/08/19 15:11 Hgb 14.1 gm/dl (11.8-15.2) 05/08/19 15:11 Hct 41.1 % (35.5-45.6) 05/08/19 15:11 MCV 102 fl (84-94) H 05/08/19 15:11 MCH 35 pg (28-32) H 05/08/19 15:11 MCHC 34 % (32-34) 05/08/19 15:11 RDW 13.8 % (13.2-15.2) 05/08/19 15:11 Plt Count 317 K/mm3 (140-440) 05/08/19 15:11 Lymph % (Auto) 16.3 % (13.4-35.0) 05/08/19 15:11 [place] % (Auto) 8.3 % (0.0-7.3) H 05/08/19 15:11 Eos % (Auto) 0.5 % (0.0-4.3) 05/08/19 15:11 Baso % (Auto) 0.8 % (0.0-1.8) 05/08/19 15:11 Lymph # 1.1 K/mm3 (1.2-5.4) L 05/08/19 15:11 [place] # 0.5 K/mm3 (0.0-0.8) 05/08/19 15:11 Eos # 0.0 K/mm3 (0.0-0.4) 05/08/19 15:11 Baso # 0.1 K/mm3 (0.0-0.1) 05/08/19 15:11 Seg Neutrophils % 74.1 % (40.0-70.0) H 05/08/19 15:11 Seg Neutrophils # 4.8 K/mm3 (1.8-7.7) 05/08/19 15:11 Sodium 135 mmol/L (137-145) L 05/08/19 15:11 Potassium 4.5 mmol/L (3.6-5.0) 05/08/19 15:11 Chloride 92.8 mmol/L (98-107) L 05/08/19 15:11 Carbon Dioxide 25 mmol/L (22-30) D 05/08/19 15:11 Anion Gap 22 mmol/L 05/08/19 15:11 BUN 14 mg/dL (9-20) 05/08/19 15:11 Creatinine 0.7 mg/dL (0.8-1.5) L 05/08/19 15:11 Estimated GFR > 60 ml/min 05/08/19 15:11 BUN/Creatinine Ratio 20 % 05/08/19 15:11 Glucose 89 mg/dL (75-100) 05/08/19 15:11 Hemoglobin A1c 5.2 % (4-6) 05/08/19 15:11 Calcium 9.6 mg/dL (8.4-10.2) 05/08/19 15:11 Total Bilirubin 0.80 mg/dL (0.1-1.2) 05/08/19 15:11 AST 102 units/L (5-40) H 05/08/19 15:11 ALT 59 units/L (7-56) H 05/08/19 15:11 Alkaline Phosphatase 78 units/L (35-129) 05/08/19 15:11 Total Protein 8.2 g/dL (6.3-8.2) 05/08/19 15:11 Albumin 4.7 g/dL (3.9-5) 05/08/19 15:11 Albumin/Globulin Ratio 1.3 % 05/08/19 15:11 TSH 2.520 mlU/mL (0.270-4.200) 05/08/19 15:11 Last Vital Signs Temp 97.6 F 05/09/19 21:25 Pulse 86 05/10/19 09:40 Resp 18 05/09/19 21:25 BP 140/71 05/10/19 09:40 Pulse Ox 98 05/08/19 19:54
[2019-05-10] MEDS: oxyCODONE /ACETAMINOPHEN 5-325MG TAB PO PRN ×2 (13:48→21:15)
[2019-05-10] MEDS: PRAVASTATIN 40 MG TAB PO SCH (21:11)
[2019-05-10] MEDS: traZODone 50 MG TAB PO SCH (21:11)
[2019-05-10] MEDS: MELATONIN 5 MG TAB PO SCH (21:13)
[2019-05-11] MEDS: DIVALPROEX DR 250 MG TAB PO SCH ×3 (08:35→20:33)
[2019-05-11] MEDS: CLOPIDOGREL 75 MG TAB PO SCH (09:37)
[2019-05-11] MEDS: THIAMINE 100 MG TAB PO SCH (09:37)
[2019-05-11] MEDS: PARoxetine 10 MG TAB PO SCH (09:38)
[2019-05-11] MEDS: amLODIPine 10 MG TAB PO SCH (09:38)
[2019-05-11] MEDS: NICOTINE 21 MG/24 HR PATCH TD SCH (09:39)
--- NOTE | 2019-05-11 10:09 | Progress Note ---
Subjective Date of service: 05/11/19 Principal diagnosis: Major depressive disorder, recurrent svere. Alcohol use disorder, severe Subjective Comment: I interviewed the patient this morning. Medical records reviewed and patient's progress was discussed with unit staff. per patient chart, pt is medication compliant, able to make needs known, calm and cooperative, denies SI/HI, denies A/V/H, interacts with selected peers, good appetite, c/o of left shoulder pain, percocet 5/325mg po given with bedtime medication with effect, pt rested well during the night, slept approximately 8hrs plus, no distress noted, will continue to monitor for safety. In my interview with the patient this morning,the patient is alert and oriented 2, able to make his needs known, dressed appropriately, maintaining eye contact. Patient reports he slept well and his appetite is poor.The patient denies seeing or hearing things he report his mood as hurting. He denies suicidal or homicidal ideations patient is noted with intermittent confusion. The patient does report that he still feel irritable at times. We'll continue to monitor patient for withdrawals and irritability Reason for continuing inpatient treatment: withdrawal symptoms/ depression Review of Symptoms: Constitutional: Negative for weight loss ENT: Negative for stridor Respiratory: Negative for cough or hemoptysis All other systems reviewed and are negative MENTAL STATUS General Appearance and Behavior: age appropriate, good eye contact, cooperative with questioning and polite Cooperation: Cooperative Psychomotor Behavior: within normal limits Mood: hurting Affect and affective range: Congruent with stated mood Thought Process: Fluent/Logical and Goal-directed Thought Content: Within reality Speech: Normal volume and Regular rate and rhythm Intellectual Functioning Average Suicidal Ideation: Denies SI Homicidal Ideation: Denies HI Impulse Control: intact Insight and Judgment: normal insight and judgment Memory: Normal Attention: Normal Orientation: alert and oriented Diagnoses: Major depressive disorder, recurrent severe. Alcohol use disorder, severe, dependence Treatment Plan Due to the psychiatric conditions and treatment listed in the Assessment and Plan - the patient requires continued hospitalization. Will continue inpatient treatment to allow for medication adjustment and mo nitoring. Will continue q15 min safety checks. Will encourage the use of environmental modifications and non-pharmacologic approaches for the management of behavioral and psychological symptoms. Medication adjustment made today: none Will continue current psych medications Monitor for medication side effects. The patient will continue on medications for physical illnesses, and Hospitalist will closely monitor these Continue intensive physical and occupational therapies. Monitor patient's mood, sleep, appetite, and behavior closely. Encourage patient to participate in individual and group therapeutic sessions on the thomas. Will provide a safe and therapeutic environment for patient. Estimated length of stay 6 days Medications and Allergies Allergies Allergy/AdvReac Type Severity Reaction Status Date / Time No Known Allergies Allergy Verified 05/01/13 00:43 Home Medications Medication Instructions Recorded Confirmed Last Taken Type Amlodipine Besylate [Norvasc] 10 mg PO QDAY 04/30/13 05/08/19 06/13/13 07:30 History Clopidogrel [Plavix] 75 mg PO QDAY 04/30/13 05/08/19 06/09/13 History Zolpidem Tartrate 10 mg PO QHS 04/30/13 05/08/19 06/12/13 History labetaloL [Labetalol 200mg TAB] 300 mg PO BID 04/30/13 05/08/19 06/13/13 07:30 History oxyCODONE /ACETAMINOPHEN [Percocet 1 tab PO Q6HR PRN #25 tablet 05/01/13 05/08/19 06/12/13 Rx 5/325 mg] Simvastatin 20 mg PO QHS #30 tablet 07/07/13 05/08/19 Unknown Rx Active Meds: Active Medications Amlodipine Besylate (Amlodipine) 10 mg PO DAILY [facility] Last Admin: 05/11/19 09:38 Dose: 10 mg Documented by: Chlordiazepoxide HCl (Librium) 50 mg PO Q1H PRN PRN Reason: CIWA-Ar 8-15 Last Admin: 05/09/19 11:51 Dose: 50 mg Documented by: Chlordiazepoxide HCl (Librium) 100 mg PO Q1H PRN PRN Reason: CIWA-Ar 16-25 Clopidogrel Bisulfate (Plavix) 75 mg PO QDAY [facility] Last Admin: 05/11/19 09:37 Dose: 75 mg Documented by: Divalproex Sodium (Depakote Dr) 250 mg PO TID [facility] Last Admin: 05/11/19 08:35 Dose: 250 mg Documented by: Hydroxyzine Pamoate (Vistaril) 50 mg PO Q6H PRN PRN Reason: Anxiety Labetalol HCl (Labetalol) 300 mg PO BID [facility] Last Admin: 01/23/20 09:37 Dose: 300 mg Documented by: Melatonin (Melatonin) 5 mg PO QHS [facility] Last Admin: 05/10/19 21:13 Dose: 5 mg Documented by: Nicotine (Habitrol) 21 mg TD QDAY [facility] Last Admin: 05/11/19 09:39 Dose: 21 mg Documented by: Oxycodone/Acetaminophen (Percocet 5/325) 1 tab PO Q6HR PRN PRN Reason: PAIN Last Admin: 05/10/19 21:15 Dose: 1 tab Documented by: Paroxetine HCl (Paxil) 10 mg PO QDAY [facility] Last Admin: 05/11/19 09:38 Dose: 10 mg Documented by: Pravastatin Sodium (Pravachol) 40 mg PO QHS [facility] Last Admin: 05/10/19 21:11 Dose: 40 mg Documented by: Thiamine HCl (Vitamin B-1) 100 mg PO QDAY [facility] Last Admin: 05/11/19 09:37 Dose: 100 mg Documented by: Trazodone HCl (Desyrel) 100 mg PO QHS [facility] Last Admin: 05/10/19 21:11 Dose: 100 mg Documented by: Results - Results Labs/Vitals: Laboratory Last Values WBC 6.5 K/mm3 (4.5-11.0) 05/08/19 15:11 RBC 4.03 M/mm3 (3.65-5.03) 05/08/19 15:11 Hgb 14.1 gm/dl (11.8-15.2) 05/08/19 15:11 Hct 41.1 % (35.5-45.6) 05/08/19 15:11 MCV 102 fl (84-94) H 05/08/19 15:11 MCH 35 pg (28-32) H 05/08/19 15:11 MCHC 34 % (32-34) 05/08/19 15:11 RDW 13.8 % (13.2-15.2) 05/08/19 15:11 Plt Count 317 K/mm3 (140-440) 05/08/19 15:11 Lymph % (Auto) 16.3 % (13.4-35.0) 05/08/19 15:11 [place] % (Auto) 8.3 % (0.0-7.3) H 05/08/19 15:11 Eos % (Auto) 0.5 % (0.0-4.3) 05/08/19 15:11 Baso % (Auto) 0.8 % (0.0-1.8) 05/08/19 15:11 Lymph # 1.1 K/mm3 (1.2-5.4) L 05/08/19 15:11 [place] # 0.5 K/mm3 (0.0-0.8) 05/08/19 15:11 Eos # 0.0 K/mm3 (0.0-0.4) 05/08/19 15:11 Baso # 0.1 K/mm3 (0.0-0.1) 05/08/19 15:11 Seg Neutrophils % 74.1 % (40.0-70.0) H 05/08/19 15:11 Seg Neutrophils # 4.8 K/mm3 (1.8-7.7) 05/08/19 15:11 Sodium 135 mmol/L (137-145) L 05/08/19 15:11 Potassium 4.5 mmol/L (3.6-5.0) 05/08/19 15:11 Chloride 92.8 mmol/L (98-107) L 05/08/19 15:11 Carbon Dioxide 25 mmol/L (22-30) D 05/08/19 15:11 Anion Gap 22 mmol/L 05/08/19 15:11 BUN 14 mg/dL (9-20) 05/08/19 15:11 Creatinine 0.7 mg/dL (0.8-1.5) L 05/08/19 15:11 Estimated GFR > 60 ml/min 05/08/19 15:11 BUN/Creatinine Ratio 20 % 05/08/19 15:11 Glucose 89 mg/dL (75-100) 05/08/19 15:11 POC Glucose 196 (70-105) H 05/10/19 20:20 Hemoglobin A1c 5.2 % (4-6) 05/08/19 15:11 Calcium 9.6 mg/dL (8.4-10.2) 05/08/19 15:11 Total Bilirubin 0.80 mg/dL (0.1-1.2) 05/08/19 15:11 AST 102 units/L (5-40) H 05/08/19 15:11 ALT 59 units/L (7-56) H 05/08/19 15:11 Alkaline Phosphatase 78 units/L (35-129) 05/08/19 15:11 Total Protein 8.2 g/dL (6.3-8.2) 05/08/19 15:11 Albumin 4.7 g/dL (3.9-5) 05/08/19 15:11 Albumin/Globulin Ratio 1.3 % 05/08/19 15:11 TSH 2.520 mlU/mL (0.270-4.200) 05/08/19 15:11 Last Vital Signs Temp 97.9 F 05/11/19 09:21 Pulse 78 05/11/19 09:38 Resp 16 05/11/19 09:21 BP 138/71 05/11/19 09:38 Pulse Ox 98 05/10/19 22:00
[2019-05-11] MEDS: oxyCODONE /ACETAMINOPHEN 5-325MG TAB PO PRN (11:30)
[2019-05-11] MEDS: traZODone 50 MG TAB PO SCH (21:19)
[2019-05-11] MEDS: MELATONIN 5 MG TAB PO SCH (21:20)
[2019-05-11] MEDS: PRAVASTATIN 40 MG TAB PO SCH (21:20)
[2019-05-12] MEDS: amLODIPine 10 MG TAB PO SCH (10:12)
[2019-05-12] MEDS: DIVALPROEX DR 250 MG TAB PO SCH ×3 (10:12→21:21)
[2019-05-12] MEDS: CLOPIDOGREL 75 MG TAB PO SCH (10:13)
[2019-05-12] MEDS: PARoxetine 10 MG TAB PO SCH (10:13)
[2019-05-12] MEDS: NICOTINE 21 MG/24 HR PATCH TD SCH (10:13)
[2019-05-12] MEDS: THIAMINE 100 MG TAB PO SCH (10:13)
--- NOTE | 2019-05-12 10:36 | Progress Note ---
Subjective Date of service: 05/12/19 Principal diagnosis: Major depressive disorder, recurrent svere. Alcohol use disorder, severe Subjective Comment: I reviewed the patient's medical record and discussed the patient's progress with the nursing staff. The nursing note states patient is withdrawn and appears depressed. flat affect, this AM, later pt seen interact with peers, patient is CACHIL DEHE and his responses are short while interacting. patient is medication compliant, c/o of generalized pain prn percocet 5/325mg given, pt verbalized relief. Patient transfers via w/c due to weak gait. During my interview with the patient this morning, he was lying in bed with his head covered with linen. He is confused. He makes poor eye contact. His affect is flat. He's very hard of hearing. He is irritable. He states, "I don't feel good" then puts his head back beneath the covers. He says he "didn't sleep well last night." He denies SI/HI. When asked about his mood, he states "I don't have one." He denies hallucinations of any kind. Reason for continuing inpatient treatment: The patient is withdrawn, irritable and unable to care for himself. Review of Symptoms: Constitutional: Negative for weight loss ENT: Negative for stridor, CACHIL DEHE Respiratory: Negative for cough or hemoptysis All other systems reviewed and are negative MENTAL STATUS General Appearance and Behavior: In bed. Dressed appropriate. Poor eye contact Mood: "I don't have one." Speech: Normal volume and Regular rate and rhythm Affect and affective range: Flat Thought Process: Confused Thought Content: Within reality Suicidal Ideation: Denies Homicidal Ideation: Denies Insight and Judgment: Limited Cognition/Memory: Confused, fair Treatment Plan Due to the psychiatric conditions and treatment listed in the Assessment and Plan - the patient requires continued hospitalization. Will continue inpatient treatment to allow for medication adjustment and monitoring. Will continue q15 min safety checks. Will encourage the use of environmental modifications and non-pharmacologic approaches for the management of behavioral and psychological symptoms. Medication adjustment made today: Risperidone 0.25mg po daily to improve mood Will continue current psych medications Monitor for medication side effects. The patient will continue on medications for physical illnesses, and Hospitalist will closely monitor these Continue intensive physical and occupational therapies. Monitor patient's mood, sleep, appetite, and behavior closely. Encourage patient to participate in individual and group therapeutic sessions on the thomas. Will provide a safe and therapeutic environment for patient. Estimated length of stay 3 days Medications and Allergies Allergies Allergy/AdvReac Type Severity Reaction Status Date / Time No Known Allergies Allergy Verified 05/01/13 00:43 Home Medications Medication Instructions Recorded Confirmed Last Taken Type Amlodipine Besylate [Norvasc] 10 mg PO QDAY 04/30/13 05/08/19 06/13/13 07:30 History Clopidogrel [Plavix] 75 mg PO QDAY 04/30/13 05/08/19 06/09/13 History Zolpidem Tartrate 10 mg PO QHS 04/30/13 05/08/19 06/12/13 History labetaloL [Labetalol 200mg TAB] 300 mg PO BID 04/30/13 05/08/19 06/13/13 07:30 History oxyCODONE /ACETAMINOPHEN [Percocet 1 tab PO Q6HR PRN #25 tablet 05/01/13 05/08/19 06/12/13 Rx 5/325 mg] Simvastatin 20 mg PO QHS #30 tablet 07/07/13 05/08/19 Unknown Rx Active Meds: Active Medications Amlodipine Besylate (Amlodipine) 10 mg PO DAILY [facility] Last Admin: 05/12/19 10:12 Dose: 10 mg Documented by: Chlordiazepoxide HCl (Librium) 50 mg PO Q1H PRN PRN Reason: CIWA-Kenn 8-15 Last Admin: 05/09/19 11:51 Dose: 50 mg Documented by: Chlordiazepoxide HCl (Librium) 100 mg PO Q1H PRN PRN Reason: HUGO-Kenn 16-25 Clopidogrel Bisulfate (Plavix) 75 mg PO QDAY [facility] Last Admin: 05/12/19 10:13 Dose: 75 mg Documented by: Divalproex Sodium (Depakote Dr) 250 mg PO TID [facility] Last Admin: 05/12/19 10:12 Dose: 250 mg Documented by: Hydroxyzine Pamoate (Vistaril) 50 mg PO Q6H PRN PRN Reason: Anxiety Labetalol HCl (Labetalol) 300 mg PO BID [facility] Last Admin: 05/12/19 10:12 Dose: 300 mg Documented by: Melatonin (Melatonin) 5 mg PO QHS [facility] Last Admin: 05/11/19 21:20 Dose: 5 mg Documented by: Nicotine (Habitrol) 21 mg TD QDAY [facility] Last Admin: 05/12/19 10:13 Dose: 21 mg Documented by: Oxycodone/Acetaminophen (Percocet 5/325) 1 tab PO Q6HR PRN PRN Reason: PAIN Last Admin: 05/11/19 11:30 Dose: 1 tab Documented by: Paroxetine HCl (Paxil) 10 mg PO QDAY [facility] Last Admin: 05/12/19 10:13 Dose: 10 mg Documented by: Pravastatin Sodium (Pravachol) 40 mg PO QHS [facility] Last Admin: 05/11/19 21:20 Dose: 40 mg Documented by: Thiamine HCl (Vitamin B-1) 100 mg PO QDAY [facility] Last Admin: 05/12/19 10:13 Dose: 100 mg Documented by: Trazodone HCl (Desyrel) 100 mg PO QHS [facility] Last Admin: 05/11/19 21:19 Dose: 100 mg Documented by: Results - Results Labs/Vitals: Laboratory Last Values WBC 6.5 K/mm3 (4.5-11.0) 05/08/19 15:11 RBC 4.03 M/mm3 (3.65-5.03) 05/08/19 15:11 Hgb 14.1 gm/dl (11.8-15.2) 05/08/19 15:11 Hct 41.1 % (35.5-45.6) 05/08/19 15:11 MCV 102 fl (84-94) H 05/08/19 15:11 MCH 35 pg (28-32) H 05/08/19 15:11 MCHC 34 % (32-34) 05/08/19 15:11 RDW 13.8 % (13.2-15.2) 05/08/19 15:11 Plt Count 317 K/mm3 (140-440) 05/08/19 15:11 Lymph % (Auto) 16.3 % (13.4-35.0) 05/08/19 15:11 [place] % (Auto) 8.3 % (0.0-7.3) H 05/08/19 15:11 Eos % (Auto) 0.5 % (0.0-4.3) 05/08/19 15:11 Baso % (Auto) 0.8 % (0.0-1.8) 05/08/19 15:11 Lymph # 1.1 K/mm3 (1.2-5.4) L 05/08/19 15:11 [place] # 0.5 K/mm3 (0.0-0.8) 05/08/19 15:11 Eos # 0.0 K/mm3 (0.0-0.4) 05/08/19 15:11 Baso # 0.1 K/mm3 (0.0-0.1) 05/08/19 15:11 Seg Neutrophils % 74.1 % (40.0-70.0) H 05/08/19 15:11 Seg Neutrophils # 4.8 K/mm3 (1.8-7.7) 05/08/19 15:11 Sodium 135 mmol/L (137-145) L 05/08/19 15:11 Potassium 4.5 mmol/L (3.6-5.0) 05/08/19 15:11 Chloride 92.8 mmol/L (98-107) L 05/08/19 15:11 Carbon Dioxide 25 mmol/L (22-30) D 05/08/19 15:11 Anion Gap 22 mmol/L 05/08/19 15:11 BUN 14 mg/dL (9-20) 05/08/19 15:11 Creatinine 0.7 mg/dL (0.8-1.5) L 05/08/19 15:11 Estimated GFR > 60 ml/min 05/08/19 15:11 BUN/Creatinine Ratio 20 % 05/08/19 15:11 Glucose 89 mg/dL (75-100) 05/08/19 15:11 POC Glucose 110 (70-105) H 05/11/19 16:36 Hemoglobin A1c 5.2 % (4-6) 05/08/19 15:11 Calcium 9.6 mg/dL (8.4-10.2) 05/08/19 15:11 Total Bilirubin 0.80 mg/dL (0.1-1.2) 05/08/19 15:11 AST 102 units/L (5-40) H 05/08/19 15:11 ALT 59 units/L (7-56) H 05/08/19 15:11 Alkaline Phosphatase 78 units/L (35-129) 05/08/19 15:11 Total Protein 8.2 g/dL (6.3-8.2) 05/08/19 15:11 Albumin 4.7 g/dL (3.9-5) 05/08/19 15:11 Albumin/Globulin Ratio 1.3 % 05/08/19 15:11 TSH 2.520 mlU/mL (0.270-4.200) 05/08/19 15:11 Last Vital Signs Temp 98.3 F 05/11/19 19:38 Pulse 76 05/12/19 10:12 Resp 18 05/12/19 10:06 BP 127/66 05/12/19 10:12 Pulse Ox 97 05/12/19 10:09
[2019-05-12] MEDS: risperiDONE 0.25 MG TAB PO SCH (12:27)
[2019-05-12] MEDS: oxyCODONE /ACETAMINOPHEN 5-325MG TAB PO PRN ×2 (12:28→21:22)
[2019-05-12] MEDS: traZODone 50 MG TAB PO SCH (21:19)
[2019-05-12] MEDS: MELATONIN 5 MG TAB PO SCH (21:21)
[2019-05-12] MEDS: PRAVASTATIN 40 MG TAB PO SCH (21:22)
--- NOTE | 2019-05-13 08:15 | Progress Note ---
Subjective Date of service: 05/13/19 Principal diagnosis: Major depressive disorder, recurrent svere. Alcohol use disorder, severe Subjective Comment: I reviewed the patient's medical record and discussed the patient's progress with the nursing staff. During my interview with the patient this morning, the patient is in his wheelchair at the door of his room. He is dressed in appropriate clothing. He is disheveled. He is a/o x 2. He makes good eye contact. He is hard of hearing. He communicates much more today than yesterday. He says he's here for "shoulder and arm pain." The patient states "I feel rough. I'm worn out." He says he slept well, but felt like he "needed more sleep." The patient then asks, "why are we getting up." I informed him that it was breakfast. He replied, "breakfast? I thought it was supper." He says his mood is "not good. I feel rough." He denies SI/HI. When asked about any hallucinations, Mr. Martinez replied, "I just hear your voice and it's sexy." Reason for continuing inpatient treatment: The patient unable to care for himself. Review of Symptoms: Constitutional: Negative for weight loss ENT: Negative for stridor, [place] Respiratory: Negative for cough or hemoptysis All other systems reviewed and are negative MENTAL STATUS General Appearance: Dressed appropriately. Disheveled. Behavior: Cooperative, inappropriate Mood: "not good" Speech: Normal rate and volume Affect and affective range: congruent Thought Process: goal directed Suicidal Ideation: Denies Homicidal Ideation: Denies Delusions: None elicited Insight and Judgment: Limited Cognition/Memory: Limited Assessment Major Depressive Disorder, recurring Alcohol Use Disorder Treatment Plan Due to the psychiatric conditions and treatment listed in the Assessment and Plan - the patient requires continued hospitalization. Will continue inpatient treatment to allow for medication adjustment and monitoring. Will continue q15 min safety checks. Will encourage the use of environmental modifications and non-pharmacologic approaches for the management of behavioral and psychological symptoms. Medication adjustment made today: No changes made today. Will continue current psych medications Monitor for medication side effects. The patient will continue on medications for physical illnesses, and Hospitalist will closely monitor these Continue intensive physical and occupational therapies. Monitor patient's mood, sleep, appetite, and behavior closely. Encourage patient to participate in individual and group therapeutic sessions on the thomas. Will provide a safe and therapeutic environment for patient. Estimated length of stay 3 days Medications and Allergies Allergies Allergy/AdvReac Type Severity Reaction Status Date / Time No Known Allergies Allergy Verified 05/01/13 00:43 Home Medications Medication Instructions Recorded Confirmed Last Taken Type Amlodipine Besylate [Norvasc] 10 mg PO QDAY 04/30/13 05/08/19 06/13/13 07:30 History Clopidogrel [Plavix] 75 mg PO QDAY 04/30/13 05/08/19 06/09/13 History Zolpidem Tartrate 10 mg PO QHS 04/30/13 05/08/19 06/12/13 History labetaloL [Labetalol 200mg TAB] 300 mg PO BID 04/30/13 05/08/19 06/13/13 07:30 History oxyCODONE /ACETAMINOPHEN [Percocet 1 tab PO Q6HR PRN #25 tablet 05/01/13 05/08/19 06/12/13 Rx 5/325 mg] Simvastatin 20 mg PO QHS #30 tablet 07/07/13 05/08/19 Unknown Rx Active Meds: Active Medications Amlodipine Besylate (Amlodipine) 10 mg PO DAILY [facility] Last Admin: 05/12/19 10:12 Dose: 10 mg Documented by: Chlordiazepoxide HCl (Librium) 50 mg PO Q1H PRN PRN Reason: CIWA-Kenn 8-15 Last Admin: 05/09/19 11:51 Dose: 50 mg Documented by: Chlordiazepoxide HCl (Librium) 100 mg PO Q1H PRN PRN Reason: HUGO-Kenn 16-25 Clopidogrel Bisulfate (Plavix) 75 mg PO QDAY [facility] Last Admin: 05/12/19 10:13 Dose: 75 mg Documented by: Divalproex Sodium (Depakote Dr) 250 mg PO TID [facility] Last Admin: 05/12/19 21:21 Dose: 250 mg Documented by: Hydroxyzine Pamoate (Vistaril) 50 mg PO Q6H PRN PRN Reason: Anxiety Labetalol HCl (Labetalol) 300 mg PO BID [facility] Last Admin: 05/12/19 21:17 Dose: 300 mg Documented by: Melatonin (Melatonin) 5 mg PO QHS [facility] Last Admin: 05/12/19 21:21 Dose: 5 mg Documented by: Nicotine (Habitrol) 21 mg TD QDAY [facility] Last Admin: 05/12/19 10:13 Dose: 21 mg Documented by: Oxycodone/Acetaminophen (Percocet 5/325) 1 tab PO Q6HR PRN PRN Reason: PAIN Last Admin: 05/12/19 21:22 Dose: 1 tab Documented by: Paroxetine HCl (Paxil) 10 mg PO QDAY [facility] Last Admin: 05/12/19 10:13 Dose: 10 mg Documented by: Pravastatin Sodium (Pravachol) 40 mg PO QHS [facility] Last Admin: 05/12/19 21:22 Dose: 40 mg Documented by: Risperidone (Risperdal) 0.25 mg PO DAILY [facility] Last Admin: 05/12/19 12:27 Dose: 0.25 mg Documented by: Thiamine HCl (Vitamin B-1) 100 mg PO QDAY [facility] Last Admin: 05/12/19 10:13 Dose: 100 mg Documented by: Trazodone HCl (Desyrel) 100 mg PO QHS [facility] Last Admin: 05/12/19 21:19 Dose: 100 mg Documented by: Results - Results Labs/Vitals: Laboratory Last Values WBC 6.5 K/mm3 (4.5-11.0) 05/08/19 15:11 RBC 4.03 M/mm3 (3.65-5.03) 05/08/19 15:11 Hgb 14.1 gm/dl (11.8-15.2) 05/08/19 15:11 Hct 41.1 % (35.5-45.6) 05/08/19 15:11 MCV 102 fl (84-94) H 05/08/19 15:11 MCH 35 pg (28-32) H 05/08/19 15:11 MCHC 34 % (32-34) 05/08/19 15:11 RDW 13.8 % (13.2-15.2) 05/08/19 15:11 Plt Count 317 K/mm3 (140-440) 05/08/19 15:11 Lymph % (Auto) 16.3 % (13.4-35.0) 05/08/19 15:11 [place] % (Auto) 8.3 % (0.0-7.3) H 05/08/19 15:11 Eos % (Auto) 0.5 % (0.0-4.3) 05/08/19 15:11 Baso % (Auto) 0.8 % (0.0-1.8) 05/08/19 15:11 Lymph # 1.1 K/mm3 (1.2-5.4) L 05/08/19 15:11 [place] # 0.5 K/mm3 (0.0-0.8) 05/08/19 15:11 Eos # 0.0 K/mm3 (0.0-0.4) 05/08/19 15:11 Baso # 0.1 K/mm3 (0.0-0.1) 05/08/19 15:11 Seg Neutrophils % 74.1 % (40.0-70.0) H 05/08/19 15:11 Seg Neutrophils # 4.8 K/mm3 (1.8-7.7) 05/08/19 15:11 Sodium 135 mmol/L (137-145) L 05/08/19 15:11 Potassium 4.5 mmol/L (3.6-5.0) 05/08/19 15:11 Chloride 92.8 mmol/L (98-107) L 05/08/19 15:11 Carbon Dioxide 25 mmol/L (22-30) D 05/08/19 15:11 Anion Gap 22 mmol/L 05/08/19 15:11 BUN 14 mg/dL (9-20) 05/08/19 15:11 Creatinine 0.7 mg/dL (0.8-1.5) L 05/08/19 15:11 Estimated GFR > 60 ml/min 05/08/19 15:11 BUN/Creatinine Ratio 20 % 05/08/19 15:11 Glucose 89 mg/dL (75-100) 05/08/19 15:11 POC Glucose 110 (70-105) H 05/11/19 16:36 Hemoglobin A1c 5.2 % (4-6) 05/08/19 15:11 Calcium 9.6 mg/dL (8.4-10.2) 05/08/19 15:11 Total Bilirubin 0.80 mg/dL (0.1-1.2) 05/08/19 15:11 AST 102 units/L (5-40) H 05/08/19 15:11 ALT 59 units/L (7-56) H 05/08/19 15:11 Alkaline Phosphatase 78 units/L (35-129) 05/08/19 15:11 Total Protein 8.2 g/dL (6.3-8.2) 05/08/19 15:11 Albumin 4.7 g/dL (3.9-5) 05/08/19 15:11 Albumin/Globulin Ratio 1.3 % 05/08/19 15:11 TSH 2.520 mlU/mL (0.270-4.200) 05/08/19 15:11 Last Vital Signs Temp 98.3 F 05/11/19 19:38 Pulse 79 05/12/19 21:17 Resp 18 05/12/19 10:06 BP 141/63 05/12/19 21:17 Pulse Ox 97 05/12/19 10:09
[2019-05-13] MEDS: oxyCODONE /ACETAMINOPHEN 5-325MG TAB PO PRN (08:28)
[2019-05-13] MEDS: DIVALPROEX DR 250 MG TAB PO SCH ×3 (08:29→21:45)
[2019-05-13] MEDS: amLODIPine 10 MG TAB PO SCH (09:21)
[2019-05-13] MEDS: THIAMINE 100 MG TAB PO SCH (09:21)
[2019-05-13] MEDS: CLOPIDOGREL 75 MG TAB PO SCH (09:21)
[2019-05-13] MEDS: risperiDONE 0.25 MG TAB PO SCH (09:21)
[2019-05-13] MEDS: PARoxetine 10 MG TAB PO SCH (09:22)
[2019-05-13] MEDS: NICOTINE 21 MG/24 HR PATCH TD SCH (09:23)
[2019-05-13] MEDS: MELATONIN 5 MG TAB PO SCH (21:44)
[2019-05-13] MEDS: traZODone 50 MG TAB PO SCH (21:45)
[2019-05-13] MEDS: PRAVASTATIN 40 MG TAB PO SCH (21:47)
--- NOTE | 2019-05-14 07:39 | Progress Note ---
Subjective Date of service: 05/14/19 Principal diagnosis: Major depressive disorder, recurrent svere. Alcohol use disorder, severe Subjective Comment: I reviewed the patient's medical record and discussed the patient's progress with the nursing staff. The nurse note states the patient has been quiet, isolative, and withdrawn. flat affect. [place] [employer] [employer]. currently medication compliant, tolerating whole. patient c/o left shoulder and knee pain. prn administered (see separate note). patient denies si/hi/avh. patient transfers via W/C. During my interview with the patient this morning, the patient is in bed. Asleep. He has the linen pulled over his head. He arouses by tactile stimuli. He makes poor eye contact. His affect is restricted. He is [place] [employer] [employer]. He is a/o x 2. When asked how was he feeling, the patient replied, "I'm making it." The patient asked "was it time to get up." He states he "didn't sleep good." When asked about SI/HI, the patient replied "I don't know any more." He denies hallucinations of any kind. Reason for continuing inpatient treatment: The patient unable to care for himself. Review of Symptoms: Constitutional: Negative for weight loss ENT: Negative for stridor, [employer] Respiratory: Negative for cough or hemoptysis All other systems reviewed and are negative MENTAL STATUS General Appearance: Dressed appropriately. Disheveled. Behavior: Cooperative, calm Mood: "I'm making it" Speech: Normal rate and volume Affect and affective range: Restricted Thought Process: goal directed Suicidal Ideation: the patient unsure Homicidal Ideation: Denies Delusions: None elicited Insight and Judgment: Limited Cognition/Memory: Limited Assessment Major Depressive Disorder, recurring Alcohol Use Disorder Treatment Plan Due to the psychiatric conditions and treatment listed in the Assessment and Plan - the patient requires continued hospitalization. Will continue inpatient treatment to allow for medication adjustment and monitoring. Will continue q15 min safety checks. Will encourage the use of environmental modifications and non-pharmacologic approaches for the management of behavioral and psychological symptoms. Medication adjustment made today: Increased Risperidone 0.5mg po daily to improve mood Will continue current psych medications Monitor for medication side effects. The patient will continue on medications for physical illnesses, and Hospitalist will closely monitor these Continue intensive physical and occupational therapies. Monitor patient's mood, sleep, appetite, and behavior closely. Encourage patient to participate in individual and group therapeutic sessions on the thomas. Will provide a safe and therapeutic environment for patient. Estimated length of stay 2 days Medications and Allergies Allergies Allergy/AdvReac Type Severity Reaction Status Date / Time No Known Allergies Allergy Verified 05/01/13 00:43 Home Medications Medication Instructions Recorded Confirmed Last Taken Type Amlodipine Besylate [Norvasc] 10 mg PO QDAY 04/30/13 05/08/19 06/13/13 07:30 History Clopidogrel [Plavix] 75 mg PO QDAY 04/30/13 05/08/19 06/09/13 History Zolpidem Tartrate 10 mg PO QHS 04/30/13 05/08/19 06/12/13 History labetaloL [Labetalol 200mg TAB] 300 mg PO BID 04/30/13 05/08/19 06/13/13 07:30 History oxyCODONE /ACETAMINOPHEN [Percocet 1 tab PO Q6HR PRN #25 tablet 05/01/13 05/08/19 06/12/13 Rx 5/325 mg] Simvastatin 20 mg PO QHS #30 tablet 07/07/13 05/08/19 Unknown Rx Active Meds: Active Medications Amlodipine Besylate (Amlodipine) 10 mg PO DAILY [facility] Last Admin: 05/13/19 09:21 Dose: 10 mg Documented by: Chlordiazepoxide HCl (Librium) 50 mg PO Q1H PRN PRN Reason: CIWA-Kenn 8-15 Last Admin: 05/09/19 11:51 Dose: 50 mg Documented by: Chlordiazepoxide HCl (Librium) 100 mg PO Q1H PRN PRN Reason: CHRISWA-Kenn 16-25 Clopidogrel Bisulfate (Plavix) 75 mg PO QDAY [facility] Last Admin: 05/13/19 09:21 Dose: 75 mg Documented by: Divalproex Sodium (Depakote Dr) 250 mg PO TID [facility] Last Admin: 05/13/19 21:45 Dose: 250 mg Documented by: Hydroxyzine Pamoate (Vistaril) 50 mg PO Q6H PRN PRN Reason: Anxiety Labetalol HCl (Labetalol) 300 mg PO BID [facility] Last Admin: 05/13/19 21:45 Dose: 300 mg Documented by: Melatonin (Melatonin) 5 mg PO QHS [facility] Last Admin: 05/13/19 21:44 Dose: 5 mg Documented by: Nicotine (Habitrol) 21 mg TD QDAY [facility] Last Admin: 05/13/19 09:23 Dose: 21 mg Documented by: Oxycodone/Acetaminophen (Percocet 5/325) 1 tab PO Q6HR PRN PRN Reason: PAIN Last Admin: 05/13/19 08:28 Dose: 1 tab Documented by: Paroxetine HCl (Paxil) 10 mg PO QDAY [facility] Last Admin: 05/13/19 09:22 Dose: 10 mg Documented by: Pravastatin Sodium (Pravachol) 40 mg PO QHS [facility] Last Admin: 05/13/19 21:47 Dose: 40 mg Documented by: Risperidone (Risperdal) 0.25 mg PO DAILY [facility] Last Admin: 05/13/19 09:21 Dose: 0.25 mg Documented by: Thiamine HCl (Vitamin B-1) 100 mg PO QDAY [facility] Last Admin: 05/13/19 09:21 Dose: 100 mg Documented by: Trazodone HCl (Desyrel) 100 mg PO QHS [facility] Last Admin: 05/13/19 21:45 Dose: 100 mg Documented by: Results - Results Labs/Vitals: Laboratory Last Values WBC 6.5 K/mm3 (4.5-11.0) 05/08/19 15:11 RBC 4.03 M/mm3 (3.65-5.03) 05/08/19 15:11 Hgb 14.1 gm/dl (11.8-15.2) 05/08/19 15:11 Hct 41.1 % (35.5-45.6) 05/08/19 15:11 MCV 102 fl (84-94) H 05/08/19 15:11 MCH 35 pg (28-32) H 05/08/19 15:11 MCHC 34 % (32-34) 05/08/19 15:11 RDW 13.8 % (13.2-15.2) 05/08/19 15:11 Plt Count 317 K/mm3 (140-440) 05/08/19 15:11 Lymph % (Auto) 16.3 % (13.4-35.0) 05/08/19 15:11 [place] % (Auto) 8.3 % (0.0-7.3) H 05/08/19 15:11 Eos % (Auto) 0.5 % (0.0-4.3) 05/08/19 15:11 Baso % (Auto) 0.8 % (0.0-1.8) 05/08/19 15:11 Lymph # 1.1 K/mm3 (1.2-5.4) L 05/08/19 15:11 [place] # 0.5 K/mm3 (0.0-0.8) 05/08/19 15:11 Eos # 0.0 K/mm3 (0.0-0.4) 05/08/19 15:11 Baso # 0.1 K/mm3 (0.0-0.1) 05/08/19 15:11 Seg Neutrophils % 74.1 % (40.0-70.0) H 05/08/19 15:11 Seg Neutrophils # 4.8 K/mm3 (1.8-7.7) 05/08/19 15:11 Sodium 135 mmol/L (137-145) L 05/08/19 15:11 Potassium 4.5 mmol/L (3.6-5.0) 05/08/19 15:11 Chloride 92.8 mmol/L (98-107) L 05/08/19 15:11 Carbon Dioxide 25 mmol/L (22-30) D 05/08/19 15:11 Anion Gap 22 mmol/L 05/08/19 15:11 BUN 14 mg/dL (9-20) 05/08/19 15:11 Creatinine 0.7 mg/dL (0.8-1.5) L 05/08/19 15:11 Estimated GFR > 60 ml/min 05/08/19 15:11 BUN/Creatinine Ratio 20 % 05/08/19 15:11 Glucose 89 mg/dL (75-100) 05/08/19 15:11 POC Glucose 110 (70-105) H 05/11/19 16:36 Hemoglobin A1c 5.2 % (4-6) 05/08/19 15:11 Calcium 9.6 mg/dL (8.4-10.2) 05/08/19 15:11 Total Bilirubin 0.80 mg/dL (0.1-1.2) 05/08/19 15:11 AST 102 units/L (5-40) H 05/08/19 15:11 ALT 59 units/L (7-56) H 05/08/19 15:11 Alkaline Phosphatase 78 units/L (35-129) 05/08/19 15:11 Total Protein 8.2 g/dL (6.3-8.2) 05/08/19 15:11 Albumin 4.7 g/dL (3.9-5) 05/08/19 15:11 Albumin/Globulin Ratio 1.3 % 05/08/19 15:11 TSH 2.520 mlU/mL (0.270-4.200) 05/08/19 15:11 Last Vital Signs Temp 98.0 F 05/13/19 08:21 Pulse 73 05/13/19 19:02 Resp 16 05/13/19 08:21 BP 149/69 05/13/19 19:02 Pulse Ox 97 05/13/19 19:02
[2019-05-14] MEDS: DIVALPROEX DR 250 MG TAB PO SCH ×3 (09:03→21:46)
[2019-05-14] MEDS: CLOPIDOGREL 75 MG TAB PO SCH (09:57)
[2019-05-14] MEDS: PARoxetine 10 MG TAB PO SCH (09:58)
[2019-05-14] MEDS: amLODIPine 10 MG TAB PO SCH (09:58)
[2019-05-14] MEDS: THIAMINE 100 MG TAB PO SCH (09:58)
[2019-05-14] MEDS: risperiDONE 0.25 MG TAB PO SCH ×2 (09:59→21:45)
[2019-05-14] MEDS: NICOTINE 21 MG/24 HR PATCH TD SCH (09:59)
[2019-05-14] MEDS: oxyCODONE /ACETAMINOPHEN 5-325MG TAB PO PRN (19:35)
[2019-05-14] MEDS: traZODone 50 MG TAB PO SCH (21:42)
[2019-05-14] MEDS: MELATONIN 5 MG TAB PO SCH (21:43)
[2019-05-14] MEDS: PRAVASTATIN 40 MG TAB PO SCH (21:46)
--- NOTE | 2019-05-15 08:38 | Progress Note ---
Subjective Date of service: 05/15/19 Principal diagnosis: Major depressive disorder, recurrent svere. Alcohol use disorder, severe Subjective Comment: I reviewed the patient's medical record and discussed the patient's progress with the nursing staff. The nurse note states the patient was pleasant and cooperative this evening. He complained of pain and after receiving the percocet he was observed dozing in his chair. Patient is observed becoming more confused each evening and throughout the night. Since patients admission this life insurance underwriter has observed each evening his cognition decreases from the day. He is increasingly forgetful and it takes him longer to process his thoughts. The increased confusion results in him becoming incontinent at times at night and forgetting how to get to the bathroom in his room. During my interview with the patient this morning, the patient is in bed. Aslee p. He arouses with tactile stimuli. He's dressed appropriately. He's [place]. He makes poor eye contact. He says "he's making it," when asked how he's feeling. He denies SI/HI or hallucinations of any kind. He says his mood is "pretty good." Reason for continuing inpatient treatment: The patient is unable to care for himself. Review of Symptoms: Constitutional: Negative for weight loss ENT: Negative for stridor, [place] Respiratory: Negative for cough or hemoptysis All other systems reviewed and are negative MENTAL STATUS General Appearance: Dressed appropriately. Behavior: Cooperative, calm, Poor eye contact Mood: "pretty good" Speech: Normal rate and volume Affect and affective range: Restricted Thought Process: goal directed Suicidal Ideation: the patient unsure Homicidal Ideation: Denies Delusions: None elicited Insight and Judgment: Limited Cognition/Memory: Limited Assessment Major Depressive Disorder, recurring Alcohol Use Disorder Treatment Plan Due to the psychiatric conditions and treatment listed in the Assessment and Plan - the patient requires continued hospitalization. Will continue inpatient treatment to allow for medication adjustment and monitoring. Will continue q15 min safety checks. Will encourage the use of environmental modifications and non-pharmacologic approaches for the management of behavioral and psychological symptoms. Medication adjustment made today: Increased Risperidone 0.5mg po daily to improve mood yesterday. No changes today. Will continue current psych medications Monitor for medication side effects. The patient will continue on medications for physical illnesses, and Hospitalist will closely monitor these Continue intensive physical and occupational therapies. Monitor patient's mood, sleep, appetite, and behavior closely. Encourage patient to participate in individual and group therapeutic sessions on the thomas. Will provide a safe and therapeutic environment for patient. Estimated length of stay 1 to 2 days Medications and Allergies Allergies Allergy/AdvReac Type Severity Reaction Status Date / Time No Known Allergies Allergy Verified 05/01/13 00:43 Home Medications Medication Instructions Recorded Confirmed Last Taken Type Amlodipine Besylate [Norvasc] 10 mg PO QDAY 04/30/13 05/08/19 06/13/13 07:30 History Clopidogrel [Plavix] 75 mg PO QDAY 04/30/13 05/08/19 06/09/13 History Zolpidem Tartrate 10 mg PO QHS 04/30/13 05/08/19 06/12/13 History labetaloL [Labetalol 200mg TAB] 300 mg PO BID 04/30/13 05/08/19 06/13/13 07:30 History oxyCODONE /ACETAMINOPHEN [Percocet 1 tab PO Q6HR PRN #25 tablet 05/01/13 05/08/19 06/12/13 Rx 5/325 mg] Simvastatin 20 mg PO QHS #30 tablet 07/07/13 05/08/19 Unknown Rx Active Meds: Active Medications Amlodipine Besylate (Amlodipine) 10 mg PO DAILY [facility] Last Admin: 05/14/19 09:58 Dose: 10 mg Documented by: Chlordiazepoxide HCl (Librium) 50 mg PO Q1H PRN PRN Reason: HUGO-Kenn 8-15 Last Admin: 05/09/19 11:51 Dose: 50 mg Documented by: Chlordiazepoxide HCl (Librium) 100 mg PO Q1H PRN PRN Reason: HUGO-Kenn 16-25 Clopidogrel Bisulfate (Plavix) 75 mg PO QDAY [facility] Last Admin: 05/14/19 09:57 Dose: 75 mg Documented by: Divalproex Sodium (Depakote Dr) 250 mg PO TID [facility] Last Admin: 05/14/19 21:46 Dose: 250 mg Documented by: Hydroxyzine Pamoate (Vistaril) 50 mg PO Q6H PRN PRN Reason: Anxiety Labetalol HCl (Labetalol) 300 mg PO BID [facility] Last Admin: 05/14/19 21:43 Dose: 300 mg Documented by: Melatonin (Melatonin) 5 mg PO QHS [facility] Last Admin: 05/14/19 21:43 Dose: 5 mg Documented by: Nicotine (Habitrol) 21 mg TD QDAY [facility] Last Admin: 05/14/19 09:59 Dose: 21 mg Documented by: Oxycodone/Acetaminophen (Percocet 5/325) 1 tab PO Q6HR PRN PRN Reason: PAIN Last Admin: 05/14/19 19:35 Dose: 1 tab Documented by: Paroxetine HCl (Paxil) 10 mg PO QDAY [facility] Last Admin: 05/14/19 09:58 Dose: 10 mg Documented by: Pravastatin Sodium (Pravachol) 40 mg PO QHS [facility] Last Admin: 05/14/19 21:46 Dose: 40 mg Documented by: Risperidone (Risperdal) 0.5 mg PO BID [facility] Last Admin: 05/14/19 21:45 Dose: 0.5 mg Documented by: Thiamine HCl (Vitamin B-1) 100 mg PO QDAY [facility] Last Admin: 05/14/19 09:58 Dose: 100 mg Documented by: Trazodone HCl (Desyrel) 100 mg PO QHS [facility] Last Admin: 05/14/19 21:42 Dose: 100 mg Documented by: Results - Results Labs/Vitals: Laboratory Last Values WBC 6.5 K/mm3 (4.5-11.0) 05/08/19 15:11 RBC 4.03 M/mm3 (3.65-5.03) 05/08/19 15:11 Hgb 14.1 gm/dl (11.8-15.2) 05/08/19 15:11 Hct 41.1 % (35.5-45.6) 05/08/19 15:11 MCV 102 fl (84-94) H 05/08/19 15:11 MCH 35 pg (28-32) H 05/08/19 15:11 MCHC 34 % (32-34) 05/08/19 15:11 RDW 13.8 % (13.2-15.2) 05/08/19 15:11 Plt Count 317 K/mm3 (140-440) 05/08/19 15:11 Lymph % (Auto) 16.3 % (13.4-35.0) 05/08/19 15:11 [place] % (Auto) 8.3 % (0.0-7.3) H 05/08/19 15:11 Eos % (Auto) 0.5 % (0.0-4.3) 05/08/19 15:11 Baso % (Auto) 0.8 % (0.0-1.8) 05/08/19 15:11 Lymph # 1.1 K/mm3 (1.2-5.4) L 05/08/19 15:11 [place] # 0.5 K/mm3 (0.0-0.8) 05/08/19 15:11 Eos # 0.0 K/mm3 (0.0-0.4) 05/08/19 15:11 Baso # 0.1 K/mm3 (0.0-0.1) 05/08/19 15:11 Seg Neutrophils % 74.1 % (40.0-70.0) H 05/08/19 15:11 Seg Neutrophils # 4.8 K/mm3 (1.8-7.7) 05/08/19 15:11 Sodium 135 mmol/L (137-145) L 05/08/19 15:11 Potassium 4.5 mmol/L (3.6-5.0) 05/08/19 15:11 Chloride 92.8 mmol/L (98-107) L 05/08/19 15:11 Carbon Dioxide 25 mmol/L (22-30) D 05/08/19 15:11 Anion Gap 22 mmol/L 05/08/19 15:11 BUN 14 mg/dL (9-20) 05/08/19 15:11 Creatinine 0.7 mg/dL (0.8-1.5) L 05/08/19 15:11 Estimated GFR > 60 ml/min 05/08/19 15:11 BUN/Creatinine Ratio 20 % 05/08/19 15:11 Glucose 89 mg/dL (75-100) 05/08/19 15:11 POC Glucose 110 (70-105) H 05/11/19 16:36 Hemoglobin A1c 5.2 % (4-6) 05/08/19 15:11 Calcium 9.6 mg/dL (8.4-10.2) 05/08/19 15:11 Total Bilirubin 0.80 mg/dL (0.1-1.2) 05/08/19 15:11 AST 102 units/L (5-40) H 05/08/19 15:11 ALT 59 units/L (7-56) H 05/08/19 15:11 Alkaline Phosphatase 78 units/L (35-129) 05/08/19 15:11 Total Protein 8.2 g/dL (6.3-8.2) 05/08/19 15:11 Albumin 4.7 g/dL (3.9-5) 05/08/19 15:11 Albumin/Globulin Ratio 1.3 % 05/08/19 15:11 TSH 2.520 mlU/mL (0.270-4.200) 05/08/19 15:11 Last Vital Signs Temp 98.0 F 05/14/19 20:00 Pulse 75 05/14/19 21:43 Resp 18 05/14/19 20:00 BP 152/73 05/14/19 21:43 Pulse Ox 97 05/14/19 19:07
[2019-05-15] MEDS: NICOTINE 21 MG/24 HR PATCH TD SCH (09:39)
[2019-05-15] MEDS: CLOPIDOGREL 75 MG TAB PO SCH (09:39)
[2019-05-15] MEDS: DIVALPROEX DR 250 MG TAB PO SCH ×3 (09:40→20:26)
[2019-05-15] MEDS: risperiDONE 0.25 MG TAB PO SCH ×2 (09:40→21:19)
[2019-05-15] MEDS: THIAMINE 100 MG TAB PO SCH (09:41)
[2019-05-15] MEDS: amLODIPine 10 MG TAB PO SCH (09:41)
[2019-05-15] MEDS: PARoxetine 10 MG TAB PO SCH (09:41)
[2019-05-15] MEDS: oxyCODONE /ACETAMINOPHEN 5-325MG TAB PO PRN ×2 (10:06→16:49)
[2019-05-15] MEDS: PRAVASTATIN 40 MG TAB PO SCH (21:16)
[2019-05-15] MEDS: MELATONIN 5 MG TAB PO SCH (21:18)
[2019-05-15] MEDS: traZODone 50 MG TAB PO SCH (21:19)
--- NOTE | 2019-05-16 08:21 | Progress Note ---
Subjective Date of service: 05/16/19 Principal diagnosis: Major depressive disorder, recurrent svere. Alcohol use disorder, severe Subjective Comment: I reviewed the patient's medical record and discussed the patient's progress with the nursing staff. One of the nurses caring for the patient states the patient gets very confused in late evenings and night time. The nurse note states the patient is alert and oriented to person and place, calm and cooperative,withdrawn flat affect, depressed mood, does not interact with peers, ambulates on wheel chair, good appetite, medication compliant, denies SI/HI,denies A/V/H, no prn given on this shift, slept for 7hrs plus. During my interview with the patient this morning, the patient is in bed. Asleep. He arouses with vigorous tactile stimuli. He is very [place] and difficult to engage because of this. He never opens his eyes during the interview. His affect is flat. He says his mood is "alright." The patient then says, "I'm alright. I'm making it." When asked about SI/HI, the patient replied, "I don't guess." He denies hallucinations after asking him several times. Reason for continuing inpatient treatment: The patient continues to be confused, withdrawn and depressed. The patient is also unable to care for himself. Review of Symptoms: Constitutional: Negative for weight loss ENT: Negative for stridor, [place] Respiratory: Negative for cough or hemoptysis All other systems reviewed and are negative MENTAL STATUS General Appearance: Dressed appropriately. Behavior: Cooperative, calm, Poor eye contact Mood: "pretty good" Speech: Normal rate and volume Affect and affective range: Restricted Thought Process: goal directed Suicidal Ideation: the patient unsure Homicidal Ideation: Denies Delusions: None elicited Insight and Judgment: Limited Cognition/Memory: Limited Assessment Major Depressive Disorder, recurring Alcohol Use Disorder Treatment Plan Due to the psychiatric conditions and treatment listed in the Assessment and Plan - the patient requires continued hospitalization. Will continue inpatient treatment to allow for medication adjustment and monitoring. Will continue q15 min safety checks. Will encourage the use of environmental modifications and non-pharmacologic approaches for the management of behavioral and psychological symptoms. Medication adjustment made today: Increased Paxil 20mg po daily to decrease depressive symptoms and improve mood Will continue current psych medications Monitor for medication side effects. The patient will continue on medications for physical illnesses, and Hospitalist will closely monitor these Continue intensive physical and occupational therapies. Monitor patient's mood, sleep, appetite, and behavior closely. Encourage patient to participate in individual and group therapeutic sessions on the thomas. Will provide a safe and therapeutic environment for patient. Estimated length of stay 1 day Medications and Allergies Allergies Allergy/AdvReac Type Severity Reaction Status Date / Time No Known Allergies Allergy Verified 05/01/13 00:43 Home Medications Medication Instructions Recorded Confirmed Last Taken Type Amlodipine Besylate [Norvasc] 10 mg PO QDAY 04/30/13 05/08/19 06/13/13 07:30 History Clopidogrel [Plavix] 75 mg PO QDAY 04/30/13 05/08/19 06/09/13 History Zolpidem Tartrate 10 mg PO QHS 04/30/13 05/08/19 06/12/13 History labetaloL [Labetalol 200mg TAB] 300 mg PO BID 04/30/13 05/08/19 06/13/13 07:30 History oxyCODONE /ACETAMINOPHEN [Percocet 1 tab PO Q6HR PRN #25 tablet 05/01/13 05/08/19 06/12/13 Rx 5/325 mg] Simvastatin 20 mg PO QHS #30 tablet 07/07/13 05/08/19 Unknown Rx Active Meds: Active Medications Amlodipine Besylate (Amlodipine) 10 mg PO DAILY [facility] Last Admin: 05/15/19 09:41 Dose: 10 mg Documented by: Chlordiazepoxide HCl (Librium) 50 mg PO Q1H PRN PRN Reason: CIWA-Kenn 8-15 Last Admin: 05/09/19 11:51 Dose: 50 mg Documented by: Chlordiazepoxide HCl (Librium) 100 mg PO Q1H PRN PRN Reason: CIWA-Kenn 16-25 Clopidogrel Bisulfate (Plavix) 75 mg PO QDAY [facility] Last Admin: 05/15/19 09:39 Dose: 75 mg Documented by: Divalproex Sodium (Depakote Dr) 250 mg PO TID [facility] Last Admin: 05/15/19 20:26 Dose: 250 mg Documented by: Hydroxyzine Pamoate (Vistaril) 50 mg PO Q6H PRN PRN Reason: Anxiety Labetalol HCl (Labetalol) 300 mg PO BID [facility] Last Admin: 05/15/19 21:17 Dose: 300 mg Documented by: Melatonin (Melatonin) 5 mg PO QHS [facility] Last Admin: 05/15/19 21:18 Dose: 5 mg Documented by: Nicotine (Habitrol) 21 mg TD QDAY [facility] Last Admin: 05/15/19 09:39 Dose: 21 mg Documented by: Oxycodone/Acetaminophen (Percocet 5/325) 1 tab PO Q6HR PRN PRN Reason: PAIN Last Admin: 05/15/19 16:49 Dose: 1 tab Documented by: Paroxetine HCl (Paxil) 10 mg PO QDAY [facility] Last Admin: 05/15/19 09:41 Dose: 10 mg Documented by: Pravastatin Sodium (Pravachol) 40 mg PO QHS [facility] Last Admin: 05/15/19 21:16 Dose: 40 mg Documented by: Risperidone (Risperdal) 0.5 mg PO BID [facility] Last Admin: 05/15/19 21:19 Dose: 0.5 mg Documented by: Thiamine HCl (Vitamin B-1) 100 mg PO QDAY [facility] Last Admin: 05/15/19 09:41 Dose: 100 mg Documented by: Trazodone HCl (Desyrel) 100 mg PO QHS [facility] Last Admin: 05/15/19 21:19 Dose: 100 mg Documented by: Results - Results Labs/Vitals: Laboratory Last Values WBC 6.5 K/mm3 (4.5-11.0) 05/08/19 15:11 RBC 4.03 M/mm3 (3.65-5.03) 05/08/19 15:11 Hgb 14.1 gm/dl (11.8-15.2) 05/08/19 15:11 Hct 41.1 % (35.5-45.6) 05/08/19 15:11 MCV 102 fl (84-94) H 05/08/19 15:11 MCH 35 pg (28-32) H 05/08/19 15:11 MCHC 34 % (32-34) 05/08/19 15:11 RDW 13.8 % (13.2-15.2) 05/08/19 15:11 Plt Count 317 K/mm3 (140-440) 05/08/19 15:11 Lymph % (Auto) 16.3 % (13.4-35.0) 05/08/19 15:11 [place] % (Auto) 8.3 % (0.0-7.3) H 05/08/19 15:11 Eos % (Auto) 0.5 % (0.0-4.3) 05/08/19 15:11 Baso % (Auto) 0.8 % (0.0-1.8) 05/08/19 15:11 Lymph # 1.1 K/mm3 (1.2-5.4) L 05/08/19 15:11 [place] # 0.5 K/mm3 (0.0-0.8) 05/08/19 15:11 Eos # 0.0 K/mm3 (0.0-0.4) 05/08/19 15:11 Baso # 0.1 K/mm3 (0.0-0.1) 05/08/19 15:11 Seg Neutrophils % 74.1 % (40.0-70.0) H 05/08/19 15:11 Seg Neutrophils # 4.8 K/mm3 (1.8-7.7) 05/08/19 15:11 Sodium 135 mmol/L (137-145) L 05/08/19 15:11 Potassium 4.5 mmol/L (3.6-5.0) 05/08/19 15:11 Chloride 92.8 mmol/L (98-107) L 05/08/19 15:11 Carbon Dioxide 25 mmol/L (22-30) D 05/08/19 15:11 Anion Gap 22 mmol/L 05/08/19 15:11 BUN 14 mg/dL (9-20) 05/08/19 15:11 Creatinine 0.7 mg/dL (0.8-1.5) L 05/08/19 15:11 Estimated GFR > 60 ml/min 05/08/19 15:11 BUN/Creatinine Ratio 20 % 05/08/19 15:11 Glucose 89 mg/dL (75-100) 05/08/19 15:11 POC Glucose 110 (70-105) H 05/11/19 16:36 Hemoglobin A1c 5.2 % (4-6) 05/08/19 15:11 Calcium 9.6 mg/dL (8.4-10.2) 05/08/19 15:11 Total Bilirubin 0.80 mg/dL (0.1-1.2) 05/08/19 15:11 AST 102 units/L (5-40) H 05/08/19 15:11 ALT 59 units/L (7-56) H 05/08/19 15:11 Alkaline Phosphatase 78 units/L (35-129) 05/08/19 15:11 Total Protein 8.2 g/dL (6.3-8.2) 05/08/19 15:11 Albumin 4.7 g/dL (3.9-5) 05/08/19 15:11 Albumin/Globulin Ratio 1.3 % 05/08/19 15:11 TSH 2.520 mlU/mL (0.270-4.200) 05/08/19 15:11 Last Vital Signs Temp 98.0 F 05/15/19 22:00 Pulse 70 05/15/19 22:00 Resp 20 05/15/19 22:00 BP 141/69 05/15/19 22:00 Pulse Ox 97 05/15/19 22:00
[2019-05-16] MEDS: risperiDONE 0.25 MG TAB PO SCH ×2 (12:12→21:24)
[2019-05-16] MEDS: THIAMINE 100 MG TAB PO SCH (12:12)
[2019-05-16] MEDS: CLOPIDOGREL 75 MG TAB PO SCH (12:12)
[2019-05-16] MEDS: PARoxetine 20 MG TAB PO SCH (12:12)
[2019-05-16] MEDS: amLODIPine 10 MG TAB PO SCH (12:12)
[2019-05-16] MEDS: DIVALPROEX DR 250 MG TAB PO SCH ×3 (12:12→19:54)
[2019-05-16] MEDS: NICOTINE 21 MG/24 HR PATCH TD SCH (12:13)
[2019-05-16] MEDS: oxyCODONE /ACETAMINOPHEN 5-325MG TAB PO PRN (19:52)
[2019-05-16] MEDS: PRAVASTATIN 40 MG TAB PO SCH (21:20)
[2019-05-16] MEDS: MELATONIN 5 MG TAB PO SCH (21:23)
[2019-05-16] MEDS: traZODone 50 MG TAB PO SCH (21:24)
[2019-05-17 09:16] VITALS: BP 100/65
[2019-05-17] MEDS: NICOTINE 21 MG/24 HR PATCH TD SCH (09:18)
[2019-05-17] MEDS: THIAMINE 100 MG TAB PO SCH (09:19)
[2019-05-17] MEDS: risperiDONE 0.25 MG TAB PO SCH (09:19)
[2019-05-17] MEDS: CLOPIDOGREL 75 MG TAB PO SCH (09:19)
[2019-05-17] MEDS: DIVALPROEX DR 250 MG TAB PO SCH ×2 (09:19→14:22)
[2019-05-17] MEDS: amLODIPine 10 MG TAB PO SCH (09:20)
[2019-05-17] MEDS: PARoxetine 20 MG TAB PO SCH (09:20)
--- NOTE | 2019-05-17 09:24 | Discharge Summary ---
Providers - Providers Date of Admission: 05/10/19 06:13 Date of discharge: 05/17/19 Attending physician: NATHEN HEART MD 05/08/19 12:41 Consult to Physician [CONS] Routine Comment: Consulting Provider: ADILSON SALEH Physician Instructions: Reason For Exam: medical management zachery-psy patient 05/09/19 11:23 Consult to Dietitian/Nutrition [CONS] Routine Physician Instructions: Reason For Exam: Reason for Consult: Pt needs oral supplement Primary care physician: MEDICATION ASSISTANT Hospitalization Admitting Diagnosis: F33.9 - MAJOR DEPRESSIVE DISORDER, RECURRENT, UNSPECIFIED Condition: Stable Hospital course: The patient was provided inpatient psychiatric treatment with safe and supportive environment, group/individual therapy, psychiatric medication, medication adjustment, adverse effect monitor, medical evaluation, medical treatment, social service assessment, social support meeting, placement assessment and psycho-education. The patients mood, cognition, behavior, motivation, compliance to treatment and appreciation on family/social support are improved and stabilized. At the time of discharge, the patient had no suicidal ideas, no homicidal ideas, no aggressive thoughts, no endangering behavior and no debilitating adverse effects. The patient agreed on the treatment plan, understood the risk, benefit, alternative treatment, potential consequence of no treatment, and gave informed consent. Disposition: - TO HOME OR SELFCARE Time spent for discharge: 35 Allergies/Adverse Reactions: Allergies No Known Allergies Allergy (Verified 05/01/13 00:43) Vital Signs: Last Vital Signs Temp 97.9 F 05/17/19 09:09 Pulse 80 05/17/19 09:09 Resp 16 05/17/19 09:09 BP 100/65 05/17/19 09:09 Pulse Ox 92 05/17/19 09:09 Last Lab: Laboratory Last Values WBC 6.5 K/mm3 (4.5-11.0) 05/08/19 15:11 RBC 4.03 M/mm3 (3.65-5.03) 05/08/19 15:11 Hgb 14.1 gm/dl (11.8-15.2) 05/08/19 15:11 Hct 41.1 % (35.5-45.6) 05/08/19 15:11 MCV 102 fl (84-94) H 05/08/19 15:11 MCH 35 pg (28-32) H 05/08/19 15:11 MCHC 34 % (32-34) 05/08/19 15:11 RDW 13.8 % (13.2-15.2) 05/08/19 15:11 Plt Count 317 K/mm3 (140-440) 05/08/19 15:11 Lymph % (Auto) 16.3 % (13.4-35.0) 05/08/19 15:11 [place] % (Auto) 8.3 % (0.0-7.3) H 05/08/19 15:11 Eos % (Auto) 0.5 % (0.0-4.3) 05/08/19 15:11 Baso % (Auto) 0.8 % (0.0-1.8) 05/08/19 15:11 Lymph # 1.1 K/mm3 (1.2-5.4) L 05/08/19 15:11 [place] # 0.5 K/mm3 (0.0-0.8) 05/08/19 15:11 Eos # 0.0 K/mm3 (0.0-0.4) 05/08/19 15:11 Baso # 0.1 K/mm3 (0.0-0.1) 05/08/19 15:11 Seg Neutrophils % 74.1 % (40.0-70.0) H 05/08/19 15:11 Seg Neutrophils # 4.8 K/mm3 (1.8-7.7) 05/08/19 15:11 Sodium 135 mmol/L (137-145) L 05/08/19 15:11 Potassium 4.5 mmol/L (3.6-5.0) 05/08/19 15:11 Chloride 92.8 mmol/L (98-107) L 05/08/19 15:11 Carbon Dioxide 25 mmol/L (22-30) D 05/08/19 15:11 Anion Gap 22 mmol/L 05/08/19 15:11 BUN 14 mg/dL (9-20) 05/08/19 15:11 Creatinine 0.7 mg/dL (0.8-1.5) L 05/08/19 15:11 Estimated GFR > 60 ml/min 05/08/19 15:11 BUN/Creatinine Ratio 20 % 05/08/19 15:11 Glucose 89 mg/dL (75-100) 05/08/19 15:11 POC Glucose 110 (70-105) H 05/11/19 16:36 Hemoglobin A1c 5.2 % (4-6) 05/08/19 15:11 Calcium 9.6 mg/dL (8.4-10.2) 05/08/19 15:11 Total Bilirubin 0.80 mg/dL (0.1-1.2) 05/08/19 15:11 AST 102 units/L (5-40) H 05/08/19 15:11 ALT 59 units/L (7-56) H 05/08/19 15:11 Alkaline Phosphatase 78 units/L (35-129) 05/08/19 15:11 Total Protein 8.2 g/dL (6.3-8.2) 05/08/19 15:11 Albumin 4.7 g/dL (3.9-5) 05/08/19 15:11 Albumin/Globulin Ratio 1.3 % 05/08/19 15:11 TSH 2.520 mlU/mL (0.270-4.200) 05/08/19 15:11 Core Measure Documentation - Palliative Care Palliative Care/ Comfort Measures: Not Applicable - Core Measures Any of the following diagnoses?: none Exam - Constitutional Vitals: Temp Pulse Resp BP Pulse Ox 97.9 F 80 16 100/65 92 05/17/19 09:09 05/17/19 09:09 05/17/19 09:09 05/17/19 09:09 05/17/19 09:09 General appearance: Present: no acute distress, well-nourished - EENT Eyes: Present: EOM intact ENT: hearing intact, clear oral mucosa - Neck Neck: Present: supple, normal ROM - Respiratory Respiratory effort: normal Plan Activity: advance as tolerated Weight Bearing Status: Weight Bear as Tolerated Care Plan Goals: Maintain good and stable mental health Plan of Treatment: The patient should be compliant with medications, not to use drugs and not to drink alcohol. The patient understands that if suicidal ideas, homicidal ideas, or any endangering thoughts arise, the patient should immediately seek for emergent assistance including but not limited to crisis hot line and emergency room. Follow up with outpatient Psychiatrist and PCP within 7 - 14 days of discharge. Health Concerns: Alcohol abuse Follow up with: PRIMARY MD DAKOTA [Primary Care Provider] - 7 Days Prescriptions: traZODone [Desyrel] 100 mg PO QHS #30 tablet Pravastatin [Pravachol] 40 mg PO QHS #30 tablet Divalproex [Jessica Monge] 250 mg PO TID #60 tablet Nicotine [Habitrol] 21 mg TD QDAY #30 patch PARoxetine [Paxil] 20 mg PO QDAY #30 tablet risperiDONE [RisperDAL] 0.5 mg PO BID #60 tablet
== END 2019-05-17 18:08 | disposition home or self-care (01) | DRG 885 ==
LOC: UNDOADMIN 09:57 → 3A 09:57 → 5A 11:24 → INTOOBSV 11:24 → OBSVTOIN 11:24 → UNDOADMOB 11:24 → OBSVTOIN 05-10 06:13 → 5A 05-10 06:13
PROVIDERS: ADMIT Psychiatry & Neurology Psychiatry; ATTEND Psychiatry & Neurology Psychiatry
DX: F33.9 Major depressive disorder, recurrent, unspecified (principal); R45.851 Suicidal ideations; F10.10 Alcohol abuse, uncomplicated; I10 Essential (primary) hypertension; Z82.49 Family history of ischemic heart disease and other diseases of the circulatory system; Z82.0 Family history of epilepsy and other diseases of the nervous system; Y90.9 Presence of alcohol in blood, level not specified; G40.909 Epilepsy, unspecified, not intractable, without status epilepticus; F41.9 Anxiety disorder, unspecified
CPT/HCPCS: 36415; 80048; 80053; 82962; 83036; 84443; 85025; G0378; A9270-GY

== ENCOUNTER 2019-06-06 11:50 | Emergency (ER) | payer MEDICARE ==
[2019-06-06] MEDS ORDERED: hydrALAZINE 20 MG/1 ML INJ IV ONE (12:21)
--- NOTE | 2019-06-06 12:29 | Emergency Department Report ---
{null, HPI - General Chief Complaint: High BP Time Seen by Provider: 06/06/19 12:17 - HPI HPI: 73-year-old male presents to the emergency department from his primary care physician's office after he was found to have very elevated blood pressure. The patient stated that he did not take his blood pressure medications this morning due to his appointment with his PCP. The patient went to see him for a checkup after having some recent falls causing some chronic lower back and left leg pains. He has a history of arthritis, seizures, previous alcohol abuse and the hypertension. He was not given anything for his symptoms prior to presentation today. He denies any headache, vision change, slurred speech, chest pain, shortness of breath. ED Past Medical Hx - Past Medical History Previous Medical History?: Yes Hx Hypertension: Yes (2009) Hx Congestive Heart Failure: No Hx Diabetes: No Hx Renal Disease: No Hx Arthritis: Yes Hx Seizures: Yes Hx Psychiatric Treatment: Yes (ETOH abuse) Hx Asthma: No Hx COPD: No Hx Dementia: No Additional medical history: insomnia, ETOH abuse - Surgical History Past Surgical History?: Yes Hx Cholecystectomy: No Hx Appendectomy: No Additional Surgical History: Back Surgery - Social History Smoking Status: Current Every Day Smoker - Medications Home Medications: Home Medications Medication Instructions Recorded Confirmed Last Taken Type Amlodipine Besylate [Norvasc] 10 mg PO QDAY 04/30/13 05/08/19 06/13/13 07:30 History Clopidogrel [Plavix] 75 mg PO QDAY 04/30/13 05/08/19 06/09/13 History Zolpidem Tartrate 10 mg PO QHS 04/30/13 05/08/19 06/12/13 History labetaloL [Labetalol 200mg TAB] 300 mg PO BID 04/30/13 05/08/19 06/13/13 07:30 History oxyCODONE /ACETAMINOPHEN [Percocet 1 tab PO Q6HR PRN #25 tablet 05/01/13 05/08/19 06/12/13 Rx 5/325 mg] Simvastatin 20 mg PO QHS #30 tablet 07/07/13 05/08/[address] [Depakote Dr] 250 mg PO TID #60 tablet 05/17/19 Unknown Rx Nicotine [Habitrol] 21 mg TD QDAY #30 patch 05/17/19 Unknown Rx PARoxetine [Paxil] 20 mg PO QDAY #30 tablet 05/17/19 Unknown Rx Pravastatin [Pravachol] 40 mg PO QHS #30 tablet 05/17/19 Unknown Rx risperiDONE [RisperDAL] 0.5 mg PO BID #60 tablet 05/17/19 Unknown Rx traZODone [Desyrel] 100 mg PO QHS #30 tablet 05/17/19 Unknown Rx ED Review of Systems ROS: Stated complaint: HYPERTENSIVE CRISIS Other details as noted in HPI Comment: All other systems reviewed and negative Constitutional: denies: chills, fever Eyes: denies: eye pain, vision change ENT: denies: ear pain, throat pain Respiratory: denies: cough, shortness of breath Cardiovascular: denies: chest pain, palpitations Gastrointestinal: denies: abdominal pain, vomiting Genitourinary: denies: dysuria, discharge Musculoskeletal: back pain, arthralgia. denies: joint swelling Skin: denies: rash, lesions Neurological: denies: headache, numbness, paresthesias Physical Exam - Physical Exam Vital Signs: Vital Signs 06/06/19 12:04 Temperature 98.3 F Pulse Rate 65 Respiratory 16 Rate Blood Pressure 206/85 Blood Pressure 206/85 [Right] O2 Sat by Pulse 99 Oximetry Physical Exam: GENERAL: The patient is well-developed well-nourished. HENT: Normocephalic. Atraumatic. Patient has moist mucous membranes. EYES: Extraocular motions are intact. NECK: Supple. Trachea is midline. CHEST/LUNGS: Clear to auscultation. There is no respiratory distress noted. HEART/CARDIOVASCULAR: Regular. There is no tachycardia. ABDOMEN: Abdomen is soft, nontender. Patient has normal bowel sounds. There is no abdominal distention. SKIN: Skin is warm and dry. NEURO: The patient is awake, alert, and cooperative. The patient has no focal neurologic deficits. Normal speech. MUSCULOSKELETAL: There is no tenderness or deformity. There is no evidence of acute injury. BACK: No midline thoracic or lumbar tenderness to palpation. There is some r eproducible left lateral lumbar tenderness to palpation. ED Course Vital Signs 06/06/19 12:04 Temperature 98.3 F Pulse Rate 65 Respiratory 16 Rate Blood Pressure 206/85 Blood Pressure 206/85 [Right] O2 Sat by Pulse 99 Oximetry ED Medical Decision Making - Lab Data Result diagrams: 06/06/19 12:49 06/06/19 12:49 - Medical Decision Making This patient was sent in by his PCP secondary to elevated blood pressure. The patient had not taken his blood pressure medications prior to his appointment. He denies any headache, vision change, slurred speech, chest pain, shortness of breath, and is essentially asymptomatic from the hypertension. Patient does complain of some left lower back pain and some left leg pain since he had a fall a few weeks ago. For this reason an x-ray was done of the lumbar spine and the left femur that does not show any fracture, dislocation, or any acute process. The patient's affected left leg has good color to it, normal temperature, and palpable distal pulses. However x-ray was read by radiology as showing some atherosclerotic disease of the arteries. Patient was given a dose of hydralazine and later a dose of labetalol and his blood pressures come down to a much more reasonable level. Patient's labs unremarkable. He was seen ambulatory in the emergency department and both appears and feels stable. Patient will given a referral for orthopedist, vascular surgery, and has been instructed to follow-up with his primary care physician. He will return to the ER with any worsening of his symptoms or any acute distress. - Differential Diagnosis fracture, muscle strain, muscle spasm Critical Care Time: No Critical care attestation.: If time is entered above; I have spent that time in minutes in the direct care of this critically ill patient, excluding procedure time. ED Disposition Clinical Impression: Asymptomatic hypertensive urgency Back pain Qualifiers: Back pain location: low back pain Chronicity: unspecified Back pain laterality: left Sciatica presence: unspecified whether sciatica present Qualified Code(s): M54.5 - Low back pain Leg pain Qualifiers: Laterality: left Qualified Code(s): M79.605 - Pain in left leg Disposition: DC-01 TO HOME OR SELFCARE Is pt being admited?: No Condition: Stable Instructions: Hypertension (ED), Arthralgia (ED), Back Pain (ED) Additional Instructions: Please follow-up with your primary care physician in the next few days. Given your history of recent falls and your subsequent back and leg pains, I am giving you a referral for a local orthopedist, Dr. Matamoros. I am also giving you a referral for a local vascular surgeon, Dr. Cuenca, to follow-up regarding your leg pain. Return to the emergency department with any worsening of your symptoms or any acute distress. Take your blood pressure medications as prescribed. Try and stay away from foods that are high in salt and caffeinated products. Keep a blood pressure log. Referrals: PAULINO MATAMOROS MD [Staff Physician] - 3-5 Days SOLOMON CUENCA MD [Staff Physician] - 3-5 Days PCP, Your [Other] - 3-5 Days Time of Disposition: 14:25 }
[2019-06-06 13:07] LABS: Basophils # (Auto) 0.1 K/mm3 (0.0-0.1); Basophils % (Auto) 1.7 % (0.0-1.8); Eosinophils # (Auto) 0.1 K/mm3 (0.0-0.4); Eosinophils % (Auto) 1.6 % (0.0-4.3); Hematocrit 39.2 % (35.5-45.6); Hemoglobin 13.9 gm/dl (11.8-15.2); Lymphocytes # (Auto) 1.5 K/mm3 (1.2-5.4); Lymphocytes % (Auto) 20.2 % (13.4-35.0); Mean Corpuscular HGB Conc 35 % (32-34); Mean Corpuscular Volume 100 fl (84-94); Monocytes # (Auto) 0.7 K/mm3 (0.0-0.8); Monocytes % (Auto) 8.9 % (0.0-7.3); Platelet Count 257 K/mm3 (140-440); Red Blood Count 3.92 M/mm3 (3.65-5.03); Red Cell Distribution Width 13.6 % (13.2-15.2)
[2019-06-06 13:30] LABS: BUN/Creatinine Ratio 14; Blood Urea Nitrogen 11 mg/dL (9-20); Calcium 9.4 mg/dL (8.4-10.2); Hemolysis Index 18
[2019-06-06] MEDS ORDERED: KETOROLAC 30 MG/1 ML INJ IV ONE (13:46)
--- NOTE | 2019-06-06 13:47 | XRay Report ---
{null, Left femur-6 views INDICATION: left leg pain. COMPARISON: None. IMPRESSION: No acute osseous or soft tissue abnormality. Mild degenerative changes in the hip and knee, with incidental extensive atherosclerotic disease in the bilateral superficial femoral arterie s. Signer Name: Dima Ellis MD Signed: 06/06/2019 1:43 PM Workstation Name: [id number] }
--- NOTE | 2019-06-06 13:48 | XRay Report ---
{null, Lumbar spine-2 views INDICATION: low back pain. COMPARISON: None. IMPRESSION: Normal alignment. Mild multilevel discogenic DJD. No acute osseous or soft tissue abno rmality. Construct in the posterior elements at the level of L4/5 between the spinous processes with no gross complication. Signer Name: Dima Ellis MD Signed: 06/06/2019 1:44 PM Workstation Name: [id number] }
[2019-06-06 14:31] VITALS: BP 165/77
== END 2019-06-06 14:39 | disposition home or self-care (01) ==
LOC: ED 11:50
DX: I16.0 Hypertensive urgency (principal); M54.9 Dorsalgia, unspecified; M79.606 Pain in leg, unspecified; F17.200 Nicotine dependence, unspecified, uncomplicated; M19.90 Unspecified osteoarthritis, unspecified site; Z98.890 Other specified postprocedural states; Z79.899 Other long term (current) drug therapy; Z86.69 Personal history of other diseases of the nervous system and sense organs
CPT/HCPCS: 36415; 72100; 73552; 80048; 85025; 96374; 96375; 99284; J0360; J1885